=== PATIENT | male | born 1935 | race Caucasian/White ===

== ENCOUNTER 2016-04-24 13:48 | Outpatient (CLI) | payer MEDICARE | END 2016-04-24 13:49 | disposition home or self-care (01) | DX: R97.20 Elevated prostate specific antigen [PSA] (principal); Z85.46 Personal history of malignant neoplasm of prostate ==

== ENCOUNTER 2016-09-10 09:42 | Outpatient (CLI) | payer MEDICARE ==
[2016-09-10 18:38] LABS: BASOPHILS % (AUTO) 0.5 %; EOSINOPHILS % (AUTO) 2.7 %; HGB - HEMOGLOBIN 14.3 g/dL (14.0-18.0); LYMPHOCYTES % (AUTO) 48.9 %; MEAN CORPUSCULAR HEMOGLOBIN 34.3 pg (27.0-31.0); MEAN CORPUSCULAR HGB CONC 33.3 g/dL (32.0-36.0); MEAN PLATELET VOLUME 10.1 fL (7.4-11.4); MONOCYTES % (AUTO) 5.6 %; NEUTROPHILS % (AUTO) 42.3 %; RED BLOOD COUNT 4.17 10^6/uL (4.70-6.10); RED CELL DISTRIBUTION WIDTH 13.4 % (12.0-15.0); UNCORRECTED WHITE BLOOD COUNT 9.6 x10^3/uL; WHITE BLOOD COUNT 9.6 x10^3/uL (4.8-10.8)
[2016-09-10 18:50] LABS: BAND NEUTROPHILS % (MANUAL) 0 %
[2016-09-10 18:54] LABS: ALBUMIN/GLOBULIN RATIO 1.4 (1.0-2.2); BILIRUBIN,TOTAL 0.6 mg/dL (0.2-1.0); BUN - BLOOD UREA NITROGEN 16 mg/dL (6-20); CARBON DIOXIDE - CO2 25 mmol/L (21-32); CHLORIDE 106 mmol/L (101-111); CHOL/HDL RATIO 3.6 (<5.0); CHOLESTEROL 228 mg/dL; CREATININE 0.7 mg/dL (0.6-1.2); GFR - MDRD 109 (>89); GLUCOSE 80 mg/dL (70-100); HDL CHOLESTEROL 63 mg/dL; LDL/HDL RATIO 2.3 (<3.6); SODIUM 139 mmol/L (135-145); TOTAL PROTEIN 6.6 g/dL (6.7-8.2); TRIGLYCERIDES 90 mg/dL; VLDL CHOLESTEROL 18 mg/dL
[2016-09-10 19:23] LABS: EOSINOPHILS % (MANUAL) 1 %; LYMPHOCYTES % (MANUAL) 38 %; NEUTROPHILS % (MANUAL) 54 %; NP AUTO DIFFERENTIAL? YES; NP MAN DIFFERENTIAL? NO; PLATELET ESTIMATE, MANUAL NORMAL (130-450,000) (NORMAL); PLATELET MORPHOLOGY NORMAL APPEARANCE (NORMAL); TOTAL CELLS COUNTED 100; WBC MORPHOLOGY (MULTIPLE) 1+ SMUDGE CELLS (NORMAL)
== END 2016-09-10 09:43 | disposition home or self-care (01) ==
LOC: LAB.R 09:42
PROVIDERS: ATTEND Internal Medicine
DX: E78.2 Mixed hyperlipidemia (principal); Z79.899 Other long term (current) drug therapy
CPT/HCPCS: 80053; 80061; 84443; 85025

== ENCOUNTER 2016-10-07 09:20 | Outpatient (CLI) | payer MEDICARE ==
--- NOTE | 2016-10-07 11:56 | XRAY Report ---
MODIFIED BARIUM SWALLOW: 10/07/2016 CLINICAL INDICATION: Dysphagia. FINDINGS: Various consistencies of barium were prepared and administered in conjunction with Speech Pathology. There was no evidence of penetration or aspiration with any administered consistency. Pl ease also refer to full report from Speech Pathology for further findings. IMPRESSION: NO EVIDENCE OF PENETRATION OR ASPIRATION. FLUOROSCOPY TIME: 1 minute 2 seconds; 1 spot image obtained (cinefluoroscopy recorded). JOB #: [id number] EXT JOB #:[id number]
== END 2016-10-07 09:21 | disposition home or self-care (01) ==
LOC: DI 09:20
PROVIDERS: ATTEND Otolaryngology
DX: R13.19 Other dysphagia (principal)
CPT/HCPCS: 74230; 92611; G8996; G8997; G8998

== ENCOUNTER 2016-11-05 15:37 | Outpatient (CLI) | payer MEDICARE | END 2016-11-05 15:38 | disposition home or self-care (01) | LOC: LAB.R 15:37 | PROVIDERS: ATTEND Internal Medicine | DX: R97.20 Elevated prostate specific antigen [PSA] (principal); C61 Malignant neoplasm of prostate | CPT/HCPCS: 84153 ==

== ENCOUNTER 2017-06-01 13:42 | Inpatient (IN) | payer MEDICARE ==
[2017-06-01 14:13] LABS: BILIRUBIN,URINE NEGATIVE (NEGATIVE); GLUCOSE, URINE (UA) NEGATIVE (NEGATIVE); KETONES,URINE (UA) NEGATIVE (NEGATIVE); LEUKOCYTE ESTERASE, URINE NEGATIVE (NEGATIVE); NITRITE,URINE NEGATIVE (NEGATIVE); OCCULT BLOOD,URINE NEGATIVE (NEGATIVE); PROTEIN,URINE NEGATIVE (NEGATIVE); UROBILINOGEN,URINE 0.2 (NORMAL) E.U./dL (NORMAL)
[2017-06-01 14:15] LABS: CLARITY,URINE CLEAR (CLEAR)
--- NOTE | 2017-06-01 14:42 | ED Physician Documentation ---
PD HPI SYNCOPE - Stated complaint Stated Complaint: WEAKNESS - Chief complaint Chief Complaint: Neuro - History obtained from History obtained from: Patient, Family - History of Present Illness Witnessed: Witnessed (had general weakness and difficulty getting up from chair , legs did not hold him, and he slumped to the floor. Not syncope per se. [place] a bit weaker yesterday. Usually is independent with walking (gets around slowly in their RV, without significant exercise). No prior similar.) Timing - onset: How many days ago (couple days of developing weakness.) Duration: Other (he is still feeling too weak to stand on his own.) Preceding symptoms: Light headed, Generalized weakness. No: Chest pain, Abdominal pain, Nausea / vomiting Associated symptoms: No: Seizure, Incontinant of urine, Chest pain Contributing factors: Recent med change (Propranolol added for migraine prophylaxis a month ago.), Other (feeling ill and with cough for couple of days) . No: Decreased PO intake Injury occurred: No: Fell Recently seen: Clinic (a month ago and Rx Propranolol for migraine prophylaxis. No other new meds. Last Cyclosporine dose was April.) Review of Systems Constitutional: reports: Chills, Myalgias, Fatigue. denies: Fever Eyes: denies: Loss of vision, Decreased vision Nose: denies: Rhinorrhea / runny nose, Congestion Throat: reports: Sore throat Cardiac: denies: Chest pain / pressure, Palpitations, Pedal edema, Calf pain Respiratory: reports: Dyspnea, Cough. denies: Wheezing GI: denies: Nausea, Vomiting, Diarrhea : denies: Dysuria, Frequency Skin: denies: Rash, Lesions Neurologic: reports: Generalized weakness, Near syncope. 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 ) HEENT: Other Psych: None Musculoskeletal: Osteoarthritis, Chronic back pain Derm: Herpes zoster, Other - Past Surgical History General: Appendectomy, Hiatal hernia repair, Colonoscopy HEENT: Cataracts - Present Medications Home Medications: Ambulatory Orders Medication Instructions Recorded Confirmed Aspirin [Aspirin EC] 81 mg PO DAILY 01/06/17 04/14/17 Atorvastatin [Lipitor] 20 mg PO DAILY 01/06/17 04/14/17 Bisacodyl [Dulcolax] 5 mg PO DAILY 01/06/17 04/14/17 Cyclosporine [Restasis] 1 each OP PRN PRN 01/06/17 04/14/17 Folic Acid 0.8 mg PO DAILY 01/06/17 04/14/17 Multivit-Min/FA/Lycopen/Lutein 1 tab PO DAILY 01/06/17 04/14/17 [Centrum Silver Men Tablet] [place]-3/Dha/Epa/Fish Oil [Fish Oil 1 each PO DAILY 01/06/17 04/14/17 1,200 mg Softgel] Rizatriptan Benzoate [Rizatriptan] 5 mg PO DAILY 01/06/17 04/14/17 Propranolol HCl [Propranolol HCl 06/01/17 ER] - Allergies Allergies/Adverse Reactions: Allergies Allergy/AdvReac Type Severity Reaction Status Date / Time No Known Drug Allergies Allergy Verified 06/01/17 13:56 - Living Situation Living Situation: reports: With spouse/s.o. Living Arrangement: reports: At home ( or mobile home) - Family History Family history: reports: Non contributory. denies: Venous thromboembolism PD ED PE NORMAL - Vitals Vital signs reviewed: Yes - General General: Alert and oriented X 3, No acute distress, Well developed/nourished - HEENT HEENT: Ears normal, Moist mucous membranes, Pharynx benign - Neck Neck: Supple, no meningeal sign, No adenopathy - Cardiac Cardiac: RRR, No murmur - Respiratory Respiratory: No respiratory distress. No: Clear bilaterally (no wheezing but has coarse sounds more on the right. 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, No motor deficit, No sensory deficit, Normal speech Eye Opening: Spontaneous Motor: Obeys Commands Verbal: Oriented GCS Score: 15 - Psych Psych: Normal mood Results - Vitals Vitals: Vital Signs - 24 hr 06/01/17 13:52 Temperature 37.0 C Heart Rate 64 Respiratory 16 Rate Blood Pressure 104/81 H O2 Saturation 98 Oxygen O2 Source Room air - Labs Labs: Laboratory Tests 06/01/17 06/01/17 06/01/17 14:05 14:37 14:37 WBC 21.0 H RBC 4.23 L Hgb 14.3 Hct 42.6 MCV 100.9 H MCH 33.8 H MCHC 33.5 RDW 13.0 Plt Count 194 MPV 10.0 Neut # Not Reportable Lymph # Not Reportable [place] # Not Reportable Eos # Not Reportable Baso # Not Reportable Absolute Nucleated RBC Not Reportable Total Counted 100 Band Neuts % (Manual) 5 Reactive Lymphs % (Man) 1 Abnorm Lymph % (Manual) 0 Nucleated RBC % Not Reportable Neutrophils # (Manual) 17.2 H Lymphocytes # (Manual) 3.4 Monocytes # (Manual) 0.4 Eosinophils # (Manual) 0.0 Basophils # (Manual) 0.0 Differential Comment MANUAL DIFFERENTIAL Platelet Estimate NORMAL (130-450,000) Platelet Morphology NORMAL APPEARANCE RBC Morph Micro Appear NORMAL APPEARANCE Sodium 136 Potassium 3.8 Chloride 103 Carbon Dioxide 24 Anion Gap 9.0 BUN 15 Creatinine 0.7 Estimated GFR (MDRD) 109 Glucose 174 H Lactic Acid Calcium 9.3 Magnesium 2.0 Total Bilirubin 1.0 AST 25 ALT 22 Alkaline Phosphatase 56 Troponin I Total Protein 7.4 Albumin 4.1 Globulin 3.3 Albumin/Globulin Ratio 1.2 Lipase 23 Urine Color YELLOW Urine Clarity CLEAR Urine pH 6.0 Ur Specific [place] 1.025 Urine Protein NEGATIVE Urine Glucose (UA) NEGATIVE Urine Ketones NEGATIVE Urine Occult Blood NEGATIVE Urine Nitrite NEGATIVE Urine Bilirubin NEGATIVE Urine Urobilinogen 0.2 (NORMAL) Ur Leukocyte Esterase NEGATIVE Ur Microscopic Review NOT INDICATED Urine Culture Comments NOT INDICATED 06/01/17 06/01/17 14:37 16:05 WBC RBC Hgb Hct MCV MCH MCHC RDW Plt Count MPV Neut # Lymph # [place] # Eos # Baso # Absolute Nucleated RBC Total Counted Band Neuts % (Manual) Reactive Lymphs % (Man) Abnorm Lymph % (Manual) Nucleated RBC % Neutrophils # (Manual) Lymphocytes # (Manual) Monocytes # (Manual) Eosinophils # (Manual) Basophils # (Manual) Differential Comment Platelet Estimate Platelet Morphology RBC Morph Micro Appear Sodium Potassium Chloride Carbon Dioxide Anion Gap BUN Creatinine Estimated GFR (MDRD) Glucose Lactic Acid 2.1 Calcium Magnesium Total Bilirubin AST ALT Alkaline Phosphatase Troponin I < 0.04 Total Protein Albumin Globulin Albumin/Globulin Ratio Lipase Urine Color Urine Clarity Urine pH Ur Specific [place] Urine Protein Urine Glucose (UA) Urine Ketones Urine Occult Blood Urine Nitrite Urine Bilirubin Urine Urobilinogen Ur Leukocyte Esterase Ur Microscopic Review Urine Culture Comments - Rads (name of study) chest xray Radiology: Final report received, EMP read contemporaneously (right middle lobe infiltrate) PD MEDICAL DECISION MAKING - ED course Complexity details: reviewed results, considered differential (Nonfocal weakness with generalized symptoms and inability to stand without assistance. He has had a cough for several days. His oxygen level is good. His heart rate is normal to slightly bradycardic. He had been started on propranolol for migraines just a month ago. This is probably adding to his weakness affect but primarily looks to be acute pneumonia. He has a elevated white count and a chest x-ray with infiltrate. The general weakness and his age also warrant more aggressive treatment. He is given IV fluids and IV antibiotics. There is no wheezing noted per se. I did talk with the hospitalist who will admit the patient.), d/w patient Departure - Departure Disposition: 66 [facility] DC/Xfer Clinical Impression: Generalized weakness Pneumonia Qualifiers: Pneumonia type: due to unspecified organism Laterality: right Lung location: middle lobe of lung Qualified Code(s): J18.1 - Lobar pneumonia, unspecified organism Condition: Stable Record reviewed to determine appropriate education?: Yes
[2017-06-01] MEDS ORDERED: SODIUM CHLORIDE 0.9% 1,000 ML IV ONE (15:03)
[2017-06-01 15:12] LABS: BASOPHILS % (AUTO) 0.3 %; EOSINOPHILS % (AUTO) 0.1 %; HGB - HEMOGLOBIN 14.3 g/dL (14.0-18.0); LYMPHOCYTES % (AUTO) 16.4 %; MEAN CORPUSCULAR HEMOGLOBIN 33.8 pg (27.0-31.0); MEAN CORPUSCULAR HGB CONC 33.5 g/dL (32.0-36.0); MEAN CORPUSCULAR VOLUME 100.9 fL (80.0-94.0); MONOCYTES % (AUTO) 4.2 %; PLT - PLATELET COUNT 194 10^3/uL (130-450); RED BLOOD COUNT 4.23 10^6/uL (4.70-6.10)
[2017-06-01 15:13] LABS: ABNORMAL LYMPHS % (MANUAL) 0 %
[2017-06-01 15:19] LABS: ALBUMIN 4.1 g/dL (3.2-5.5); ALBUMIN/GLOBULIN RATIO 1.2 (1.0-2.2); CALCIUM 9.3 mg/dL (8.5-10.3); CREATININE 0.7 mg/dL (0.6-1.2); TOTAL PROTEIN 7.4 g/dL (6.7-8.2)
[2017-06-01 15:41] LABS: BAND NEUTROPHILS % (MANUAL) 5 %; DIFFERENTIAL COMMENT MANUAL DIFFERENTIAL; LYMPHOCYTES # (MANUAL) 3.4 10^3/uL (1.5-3.5); LYMPHOCYTES % (MANUAL) 15 %; MONOCYTES # (MANUAL) 0.4 10^3/uL (0.0-1.0); NEUTROPHILS # (MANUAL) 17.2 10^3/uL (1.5-6.6); NEUTROPHILS % (MANUAL) 77 %; PLATELET ESTIMATE, MANUAL NORMAL (130-450,000) (NORMAL); PLATELET MORPHOLOGY NORMAL APPEARANCE (NORMAL); RBC MORPHOLOGY (MULTIPLE) NORMAL APPEARANCE (NORMAL)
--- NOTE | 2017-06-01 15:43 | XRAY Preliminary Report ---
Exam: XR CHEST 2 VIEW X-RAY IMPRESSION: 1. Right upper mid lung new density, suspicious for acute pneumonia, not excluding old granulomatous disease or neoplasm. Follow-up recommended to ensure resolution or stability. [facility] SITE ID: [id number]
--- NOTE | 2017-06-01 15:43 | XRAY Report ---
EXAM: CHEST RADIOGRAPHY EXAM DATE: 06/01/2017 03:19 PM. CLINICAL HISTORY: Cough and weakness. COMPARISON: None. TECHNIQUE: 2 views. FINDINGS: Lungs/Pleura: There is an asymmetric ill-defined opacity within the right upper lobe. The left lung i s clear. Negative for pleural effusion and pneumothorax. Mediastinum: There are calcified right hilar lymph nodes. The heart size is normal. Other: None. IMPRESSION: 1. Right upper mid lung new density, suspicious for acute pneumonia, not excluding old granulomatous disease or neoplasm. Follow-up recommended to ensure resolution or stability. [facility] Referring Provider Line: [phone] SITE ID: [id number]
[2017-06-01] MEDS ORDERED: cefTRIAXone 1 GM in SODIUM CHLORIDE 0.9% MINIBAG 100 ML IV STA (15:55)
[2017-06-01] MEDS ORDERED: AZITHROMYCIN INJ 500 MG in SODIUM CHLORIDE 0.9% 250 ML IV STA (15:56)
[2017-06-01] MEDS ORDERED: IBUPROFEN 600 MG TABLET PO PRN (17:36)
[2017-06-01] MEDS ORDERED: SODIUM CHLORIDE FLUSH 0.9% 10 ML SYRINGE IVP PRN (17:36)
[2017-06-01] MEDS ORDERED: TEMAZEPAM 15 MG CAPSULE PO PRN (17:36)
[2017-06-01] MEDS ORDERED: ONDANSETRON 4 MG/2 ML VIAL IVP PRN (17:36)
--- NOTE | 2017-06-01 17:50 | HISTORY & PHYSICAL EXAMINATION ---
Chief Complaint - Chief Complaint Chief Complaint: "I fell this moringing getting dressed" History of Present Illness - Admitted From Admitted From:: ER - History Obtained From Records Reviewed: in [facility] History obtained from: patient and Exam Limitations: none - History of Present Illness HPI Comment/Other: Mr Adler is a pleasant 81yo M with history of prostate CA, under treatment with Lupron and doing well. He reports occasional migraines, under control with propranolol. Patient reports he was in his usual state of health until the Thursday when he got a sore throat. Today, he was getting dressed and felt weak, he slid to the floor and had no injury, he did not lose consciousness. He has cough, rarely productive of sputum, no fever or chills but states he is always cold. He has had mild congestion in the chest bt no wheezing. Of note his was admitted last month with pneumonia and responded well to antibx therapy. History - Past Medical History Cardiovascular: reports: High cholesterol Respiratory: reports: None Neuro: reports: Headache/migraine Endocrine/Autoimmune: reports: None GI: reports: Colon polyps : reports: Other (postate cancer, on Lupron, followed by Soo Gamboa) Psych: reports: None Musculoskeletal: reports: Osteoarthritis Derm: reports: Herpes zoster MRSA Hx?: No - Past Surgical History General: reports: Appendectomy, Hiatal hernia repair HEENT: reports: Cataracts (right) - Family & Social History Family History: Mother: ((dad)healthy, at age 100), Diabetes, Type 2, Father: , Brother: CAD (afib), Cancer (colon) Living arrangement: At home (RV, 4 steps to enter and 1 step inside) Living Situation: With spouse/s.o. - Substance History Use: Uses substance without health or social issues: Alcohol (1/3 bottle of wine a day) Abuse: Recurrent use of substance despite neg consequences: NONE Dependence: Experiences withdrawal or developed tolerances: NONE Tobacco Details: Chewing Tobacco (1/3 can of [place] a day) Meds/Allgy - Home Medications Home Medications: Ambulatory Orders Medication Instructions Recorded Confirmed Aspirin [Aspirin EC] 81 mg PO DAILY 01/06/17 06/01/17 Atorvastatin [Lipitor] 20 mg PO QPM 01/06/17 06/01/17 Folic Acid 800 mcg PO DAILY 01/06/17 06/01/17 [place]-3/Dha/Epa/Fish Oil [Fish Oil 1,200 mg PO DAILY 01/06/17 06/01/17 1,200 mg Softgel] Rizatriptan Benzoate [Rizatriptan] 5 mg PO PRN PRN 01/06/17 06/01/17 Multivitamin [Theragran] 1 tab PO DAILY 06/01/17 06/01/17 Propranolol HCl [Propranolol HCl 80 mg PO DAILY 06/01/17 06/01/17 ER] - Allergies Allergies/Adverse Reactions: Allergies Allergy/AdvReac Type Severity Reaction Status Date / Time No Known Drug Allergies Allergy Verified 06/01/17 13:56 Review of Systems - Constitutional Constitutional: reports: Fatigue, Weakness. denies: Fever, Diaphoresis, Night sweats - Eyes Eyes: denies: Pain, Vision loss - Ears, Nose & Throat Ears, Nose & Throat: reports: Sore throat. denies: Ear pain, Vertigo - Cardiovascular Cariovascular: denies: Irregular heart rate, Chest pain, Syncope, Exertional dyspnea - Respiratory Respiratory: reports: Cough, Sputum production (scant). denies: Hemoptysis, Orthopnea, SOB at rest - Gastrointestinal Gastrointestinal: denies: Abdominal pain, Constipation, Diarrhea, Nausea, Vomiting - Genitourinary Genitourinary: denies: Dysuria, Flank pain - Musculoskeletal Musculoskeletal: reports: Back pain (somewhat chronic). denies: Muscle pain - Integumentary Integumentary: denies: Rash - Neurological Neurological: reports: Memory problems ( says forgetful). denies: Headache - Psychiatric Psychiatric: denies: Depression, Anxiety - Hematologic/Lymphatic Hematologic/Lymphatic: denies: Anemia, Blood clots, Recurrent infections - All Other Systems All Other Systems: reports: Reviewed and negative Exam - Vital Signs Vital Signs: Vital Signs x48h Temp Pulse Resp BP Pulse Ox 06/01/17 17:27 150/89 H 06/01/17 17:16 72 20 162/144 H 98 06/01/17 13:52 37.0 C 64 16 104/81 H 98 - Physical Exam General Appearance: positive: No acute distress, Alert Eyes Bilateral: positive: Normal inspection, PERRL, EOMI, Conjunctivae nml ENT: positive: Dry mucous membranes Neck: positive: No JVD Respiratory: positive: Chest non-tender, No respiratory distress. negative: Breath sounds nml (decresed in the right side) Cardiovascular: positive: Regular rate & rhythm, No murmur Peripheral Pulses: positive: 2+ Abdomen: positive: Non-tender, Nml bowel sounds, No distention Back: positive: Nml inspection Skin: positive: Color nml, Warm, Dry. negative: Skin rash Extremities: positive: Non-tender, Full ROM, Nml appearance. negative: Pedal edema, Calf tenderness, Joint swelling Neurologic/Psychiatric: positive: Oriented x3, Motor nml, Sensation nml, Mood/ affect nml Conclusion/Plan - Problem List (1) Pneumonia Conclusion/Plan: Presented for sudden onset generalized weakness, GLF, unable to stand and walk. This is following 1d sore throat and cough with mild chest congestion. WBC 21k, neutrophil predominant. No fever. CXR confirm RUL opacity. recently with CAP. -Check flu swab -CTX + azithromycin -Duonebs q6 -Supplemental O2 as needed to keep sat >90% -Supportive care: tylenol and antitussives Qualifiers: Pneumonia type: due to unspecified organism Laterality: right Lung location: middle lobe of lung Qualified Code(s): J18.1 - Lobar pneumonia, unspecified organism (2) Generalized weakness Conclusion/Plan: Likely from pneumonia, usually walks independently (with a cane sometimes). GLF today x1, no injury. -PT consult (3) Prostate cancer Conclusion/Plan: PHx of, stable on Lupron. Olsen scan 10/2016 negative for metastasis. -Follow-up with Dr Gamboa as previously planned (4) Migraine Conclusion/Plan: Hx of migraine, none recently. -Continue propranolol -Uses triptan prn at home DISCHARGE PLAN: I suspect he will return home in 2-3d - Lab Results Lab results reviewed: Yes Fish Bones: 06/01/17 14:37 06/01/17 14:37 - Diagnostic Imaging Results Diagnostic Imaging Results: positive: Final report reviewed (CXR wiht RUL opacity) - EKG Results EKG Interpreted Independently: Yes EKG Findings: reviewed. Core Measures - Anticipated LOS I expect patient to be DC'd or transferred within 96 hours.: Yes - DVT/VTE - Prophylaxis VTE/DVT Device ordered at admit?: Yes VTE/DVT Prophylaxis med ordered at admit?: Yes
[2017-06-01] MEDS ORDERED: BENZONATATE 100 MG CAPSULE PO PRN (19:15)
[2017-06-01] MEDS ORDERED: guaiFENesin/DEXTROMETHORPHAN 10 ML UDC PO PRN (19:15)
[2017-06-01] MEDS: IPRATROPIUM/ALBUTEROL 3 ML NEB INH SCH (19:23)
[2017-06-01] MEDS: ATORVASTATIN 10 MG TABLET PO SCH (20:45)
[2017-06-02] MEDS: SODIUM CHLORIDE FLUSH 0.9% 10 ML SYRINGE IVP SCH ×3 (00:44→17:24)
[2017-06-02] MEDS: ACETAMINOPHEN 325 MG TABLET PO PRN (00:50)
[2017-06-02 04:56] LABS: BASOPHILS # (AUTO) 0.1 10^3/uL (0.0-0.1); BASOPHILS % (AUTO) 0.5 %; EOSINOPHILS # (AUTO) 0.1 10^3/uL (0.0-0.7); EOSINOPHILS % (AUTO) 0.3 %; HGB - HEMOGLOBIN 11.9 g/dL (14.0-18.0); LYMPHOCYTES # (AUTO) 4.9 10^3/uL (1.5-3.5); LYMPHOCYTES % (AUTO) 24.6 %; MEAN CORPUSCULAR HEMOGLOBIN 33.1 pg (27.0-31.0); MEAN CORPUSCULAR HGB CONC 33.3 g/dL (32.0-36.0); MEAN CORPUSCULAR VOLUME 99.3 fL (80.0-94.0); MEAN PLATELET VOLUME 9.8 fL (7.4-11.4); MONOCYTES # (AUTO) 1.5 10^3/uL (0.0-1.0); MONOCYTES % (AUTO) 7.7 %; NEUTROPHILS # (AUTO) 13.2 10^3/uL (1.5-6.6); NEUTROPHILS % (AUTO) 66.9 %; PLT - PLATELET COUNT 171 10^3/uL (130-450); RED BLOOD COUNT 3.58 10^6/uL (4.70-6.10); RED CELL DISTRIBUTION WIDTH 12.7 % (12.0-15.0); WHITE BLOOD COUNT 19.8 x10^3/uL (4.8-10.8)
[2017-06-02] MEDS: IPRATROPIUM/ALBUTEROL 3 ML NEB INH SCH ×3 (09:00→20:17)
[2017-06-02] MEDS: AZITHROMYCIN 250 MG TABLET PO SCH (09:23)
[2017-06-02] MEDS: PROPRANOLOL ER 80 MG CAPSULE PO SCH (09:23)
[2017-06-02] MEDS: MULTIVITAMIN TABLET PO SCH (09:23)
[2017-06-02] MEDS: SACCHAROMYCES BOULARDII 250 MG CAPSULE PO SCH ×2 (09:23→17:24)
[2017-06-02] MEDS: FOLIC ACID 1 MG TABLET PO SCH (09:23)
[2017-06-02] MEDS: OMEGA-3 ACID ETHYL ESTERS 1 GM CAPSULE PO SCH (09:23)
[2017-06-02] MEDS: ASPIRIN EC 81 MG TABLET PO SCH (09:23)
[2017-06-02] MEDS: POLYETHYLENE GLYCOL 3350 17 GM PACKET PO SCH (09:25)
[2017-06-02] MEDS: ENOXAPARIN 40 MG/0.4 ML SYRINGE SUBQ SCH (09:26)
[2017-06-02] MEDS: cefTRIAXone 2 GM in SODIUM CHLORIDE 0.9% MINIBAG 100 ML IV SCH (09:33)
--- NOTE | 2017-06-02 17:22 | PROVIDER PROGRESS NOTE ---
Subjective - Prog Note Date Prog Note Date: 06/02/17 - Subjective Pt reports feeling: Improved Subjective: pt state he feels breathing better. denies CP, fever, chill, cough Current Medications - Current Medications Current Medications: Active Medications Acetaminophen (Tylenol) 650 mg PO Q4HR PRN PRN Reason: Pain 1 to 4 Last Admin: 06/02/17 00:50 Dose: 650 mg Albuterol/Ipratropium (Duoneb) 3 ml INH RTQID [facility] Stop: 06/02/17 18:59 Last Admin: 06/02/17 14:11 Dose: 3 ml Aspirin (Ecotrin) 81 mg PO DAILY [facility] Last Admin: 06/02/17 09:23 Dose: 81 mg Atorvastatin Calcium (Lipitor) 20 mg PO QPM [facility] Last Admin: 06/01/17 20:45 Dose: 20 mg Azithromycin (Zithromax) 500 mg PO DAILY [facility] Last Admin: 06/02/17 09:23 Dose: 500 mg Benzonatate (Tessalon) 100 mg PO TID PRN PRN Reason: Cough Enoxaparin Sodium (Lovenox) 40 mg SUBQ DAILY [facility] Last Admin: 06/02/17 09:26 Dose: 40 mg Folic Acid () 1 mg PO DAILY [facility] Last Admin: 06/02/17 09:23 Dose: 1 mg Guaifenesin (Robitussin Dm) 10 ml PO Q6HR PRN PRN Reason: Cough Ceftriaxone Sodium 2 gm/ (Sodium Chloride) 100 mls @ 200 mls/hr IV DAILY [facility] Last Infusion: 06/02/17 10:03 Dose: Infused Ibuprofen (Motrin) 600 mg PO Q6HR PRN PRN Reason: Pain 1 to 4 Multivitamins (Theragran) 1 tab PO DAILY [facility] Last Admin: 06/02/17 09:23 Dose: 1 tab Yvhal-0-Cvfb Ethyl Esters (Lovaza) 1 gm PO DAILY [facility] Last Admin: 06/02/17 09:23 Dose: 1 gm Ondansetron HCl (Zofran Inj) 4 mg IVP Q6HR PRN PRN Reason: Nausea / Vomiting Polyethylene Glycol (Miralax) 17 gm PO DAILY [facility] Last Admin: 06/02/17 09:25 Dose: 17 gm Propranolol HCl (Inderal La) 80 mg PO DAILY [facility] Last Admin: 03/27/18 09:23 Dose: 80 mg Saccharomyces Boulardii (Florastor) 250 mg PO BIDWM [facility] Last Admin: 06/02/17 09:23 Dose: 250 mg Sodium Chloride (Normal Saline Flush 0.9%) 10 ml IVP PRN PRN PRN Reason: NEEDED PER PROVIDER ORDERS Sodium Chloride (Normal Saline Flush 0.9%) 10 ml IVP 0100,0900,1700 [facility] Last Admin: 06/02/17 09:26 Dose: 10 ml Temazepam (Restoril) 15 mg PO QPM PRN PRN Reason: Insomnia Aspirin [Aspirin EC] 81 mg PO DAILY 01/06/17 Atorvastatin [Lipitor] 20 mg PO QPM 01/06/17 Folic Acid 800 mcg PO DAILY 01/06/17 [place]-3/Dha/Epa/Fish Oil [Fish Oil 1,200 mg Softgel] 1,200 mg PO DAILY 01/06/17 Rizatriptan Benzoate [Rizatriptan] 5 mg PO PRN PRN 01/06/17 Multivitamin [Theragran] 1 tab PO DAILY 06/01/17 Propranolol HCl [Propranolol HCl ER] 80 mg PO DAILY 06/01/17 Objective - Vital Signs/Intake & Output Vital Signs: Vital Signs x48h Temp Pulse Pulse Pulse Pulse Resp BP 06/02/17 16:00 37.3 C 58 L 20 06/02/17 14:12 65 18 06/02/17 13:45 55 L 46 L 152/79 H BP BP Pulse Ox 06/02/17 16:00 154/79 H 98 06/02/17 14:12 06/02/17 13:45 132/60 H Intake & Output: Intake & Output 05/30/17 05/31/17 06/01/17 06/02/17 23:59 23:59 23:59 23:59 Intake Total 2250 Output Total 300 Balance 1950 - Objective General Appearance: positive: No acute distress, Alert. negative: Lethargic Eyes Bilateral: positive: Normal inspection, PERRL, No lid inflammation, Conjunctivae nml ENT: positive: ENT inspection nml, Pharynx nml, No signs of dehydration. negative: Purulent nasal drainage, Pharyngeal erythema, Oral lesions, Dry mucous membranes Neck: positive: Nml inspection, Thyroid nml, No JVD. negative: Trachea midline , Thyromegaly, Lymphadenopathy (R), Lymphadenopathy (L), Stiff neck, Carotid bruit, Swelling/bruising, Tracheal deviation Respiratory: positive: Chest non-tender, No respiratory distress, Breath sounds nml. negative: Wheezes, Rales, Rhonchi Cardiovascular: positive: Regular rate & rhythm, No murmur, No gallop. negative : Irregularly irregular, Extrasystoles, Tachycardia, Bradycardia, Systolic murmur, Diastolic murmur Peripheral Pulses: 2+ Radial (R), 2+ Radial (L), 2+ Dorsalis pedis (R), 2+ Dorsalis pedis (L) Abdomen: positive: Non-tender, No organomegaly, Nml bowel sounds, No distention. negative: Tenderness, Guarding, Rebound Back: positive: Nml inspection. negative: CVA tenderness (R), CVA tenderness (L ) Skin: positive: Color nml, No rash, Warm, Dry. negative: Cyanosis, Diaphoresis , Pallor Extremities: positive: Non-tender, Nml appearance. negative: Calf tenderness, Joint swelling, Lenka's sign/cords Neurologic/Psychiatric: positive: Sensation nml, Disoriented to place, Disoriented to time. negative: Disoriented to person, Weakness, Sensory loss, Facial droop, Slurred/abnml speech - Lab Results Fish Bones: 06/02/17 04:43 06/01/17 14:37 Other Labs: Lab Results x24hrs 06/02/17 06/01/17 Range/Units 04:43 21:00 WBC 19.8 H (4.8-10.8) x10^3/uL RBC 3.58 L (4.70-6.10) 10^6/uL Hgb 11.9 L (14.0-18.0) g/dL Hct 35.6 L (42.0-52.0) % MCV 99.3 H (80.0-94.0) fL MCH 33.1 H (27.0-31.0) pg MCHC 33.3 (32.0-36.0) g/dL RDW 12.7 (12.0-15.0) % Plt Count 171 (130-450) 10^3/uL MPV 9.8 (7.4-11.4) fL Neut # 13.2 H (1.5-6.6) 10^3/uL Lymph # 4.9 H (1.5-3.5) 10^3/uL [place] # 1.5 H (0.0-1.0) 10^3/uL Eos # 0.1 (0.0-0.7) 10^3/uL Baso # 0.1 (0.0-0.1) 10^3/uL Absolute Nucleated RBC 0.00 x10^3/uL Nucleated RBC % 0.0 /100WBC Influenza A (Rapid) Negative (Negative) Influenza B (Rapid) Negative (Negative) Influenza Types A,B Ag - Assessment/Plan - Problem List (1) Pneumonia Impression: (1) Pneumonia Conclusion/Plan: Negative for influZ A/B continue Rocephin + azithromycin -Duonebs q6 PRN -Supplemental O2 as needed to keep sat >90% Presented for sudden onset generalized weakness, GLF, unable to stand and walk. This is following 1d sore throat and cough with mild chest congestion. WBC 21k, neutrophil predominant. No fever. CXR confirm RUL opacity. recently with CAP. -Check flu swab -CTX + azithromycin -Duonebs q6 -Supplemental O2 as needed to keep sat >90% -Supportive care: tylenol and antitussives (2) Generalized weakness Conclusion/Plan: continue PT, follow up recommendation Likely from pneumonia, usually walks independently (with a cane sometimes). GLF today x1, no injury. -PT consult (3) Prostate cancer Conclusion/Plan: stable, follow up pt's oncologist after D/C PHx of, stable on Lupron. Olsen scan 10/2016 negative for metastasis. -Follow-up with Dr Gamboa as previously planned (4) Migraine Conclusion/Plan: stable, continue home meds Hx of migraine, none recently. -Continue propranolol -Uses triptan prn at home Qualifiers: Pneumonia type: due to unspecified organism Laterality: right Lung location: middle lobe of lung Qualified Code(s): J18.1 - Lobar pneumonia, unspecified organism
[2017-06-02] MEDS: ATORVASTATIN 10 MG TABLET PO SCH (20:38)
[2017-06-03] MEDS: SODIUM CHLORIDE FLUSH 0.9% 10 ML SYRINGE IVP SCH ×3 (02:18→17:33)
[2017-06-03 04:54] LABS: BASOPHILS # (AUTO) 0.1 10^3/uL (0.0-0.1); BASOPHILS % (AUTO) 0.3 %; EOSINOPHILS # (AUTO) 0.1 10^3/uL (0.0-0.7); EOSINOPHILS % (AUTO) 0.8 %; HGB - HEMOGLOBIN 12.2 g/dL (14.0-18.0); LYMPHOCYTES % (AUTO) 25.1 %; MEAN CORPUSCULAR HEMOGLOBIN 33.4 pg (27.0-31.0); MEAN CORPUSCULAR HGB CONC 33.3 g/dL (32.0-36.0); MEAN CORPUSCULAR VOLUME 100.4 fL (80.0-94.0); MEAN PLATELET VOLUME 9.8 fL (7.4-11.4); MONOCYTES # (AUTO) 1.5 10^3/uL (0.0-1.0); MONOCYTES % (AUTO) 9.4 %; NEUTROPHILS # (AUTO) 10.3 10^3/uL (1.5-6.6); NEUTROPHILS % (AUTO) 64.4 %; PLT - PLATELET COUNT 170 10^3/uL (130-450); RED BLOOD COUNT 3.65 10^6/uL (4.70-6.10); RED CELL DISTRIBUTION WIDTH 12.7 % (12.0-15.0)
[2017-06-03 05:06] LABS: ALBUMIN 3.4 g/dL (3.2-5.5); ALBUMIN/GLOBULIN RATIO 1.1 (1.0-2.2); BILIRUBIN,TOTAL 0.8 mg/dL (0.2-1.0); CALCIUM 8.7 mg/dL (8.5-10.3); CREATININE 0.5 mg/dL (0.6-1.2); TOTAL PROTEIN 6.4 g/dL (6.7-8.2)
[2017-06-03] MEDS ORDERED: POTASSIUM CHLORIDE 20 MEQ TABLET PO ONE (08:19)
[2017-06-03] MEDS: SACCHAROMYCES BOULARDII 250 MG CAPSULE PO SCH ×2 (08:46→16:26)
[2017-06-03] MEDS: PROPRANOLOL ER 80 MG CAPSULE PO SCH (08:47)
[2017-06-03] MEDS: OMEGA-3 ACID ETHYL ESTERS 1 GM CAPSULE PO SCH (08:47)
[2017-06-03] MEDS: AZITHROMYCIN 250 MG TABLET PO SCH (08:47)
[2017-06-03] MEDS: MULTIVITAMIN TABLET PO SCH (08:47)
[2017-06-03] MEDS: ASPIRIN EC 81 MG TABLET PO SCH (08:47)
[2017-06-03] MEDS: FOLIC ACID 1 MG TABLET PO SCH (08:47)
[2017-06-03] MEDS: cefTRIAXone 2 GM in SODIUM CHLORIDE 0.9% MINIBAG 100 ML IV SCH (08:48)
[2017-06-03] MEDS: ENOXAPARIN 40 MG/0.4 ML SYRINGE SUBQ SCH (08:52)
[2017-06-03] MEDS: POLYETHYLENE GLYCOL 3350 17 GM PACKET PO SCH (09:36)
[2017-06-03] MEDS: ACETAMINOPHEN 325 MG TABLET PO PRN (12:28)
--- NOTE | 2017-06-03 12:48 | PROVIDER PROGRESS NOTE ---
Subjective - Prog Note Date Prog Note Date: 06/03/17 - Subjective Pt reports feeling: Improved Subjective: pt report he feel better and gains some strength as well. Denies fever, chill, CP, SOB Current Medications - Current Medications Current Medications: Active Medications Acetaminophen (Tylenol) 650 mg PO Q4HR PRN PRN Reason: Pain 1 to 4 Last Admin: 06/03/17 12:28 Dose: 650 mg Aspirin (Ecotrin) 81 mg PO DAILY [facility] Last Admin: 06/03/17 08:47 Dose: 81 mg Atorvastatin Calcium (Lipitor) 20 mg PO QPM [facility] Last Admin: 06/02/17 20:38 Dose: 20 mg Azithromycin (Zithromax) 500 mg PO DAILY [facility] Last Admin: 06/03/17 08:47 Dose: 500 mg Benzonatate (Tessalon) 100 mg PO TID PRN PRN Reason: Cough Enoxaparin Sodium (Lovenox) 40 mg SUBQ DAILY [facility] Last Admin: 06/03/17 08:52 Dose: 40 mg Folic Acid () 1 mg PO DAILY [facility] Last Admin: 06/03/17 08:47 Dose: 1 mg Guaifenesin (Robitussin Dm) 10 ml PO Q6HR PRN PRN Reason: Cough Ceftriaxone Sodium 2 gm/ (Sodium Chloride) 100 mls @ 200 mls/hr IV DAILY [facility] Last Infusion: 06/03/17 09:18 Dose: Infused Ibuprofen (Motrin) 600 mg PO Q6HR PRN PRN Reason: Pain 1 to 4 Multivitamins (Theragran) 1 tab PO DAILY [facility] Last Admin: 06/03/17 08:47 Dose: 1 tab [id number] Ethyl Esters (Lovaza) 1 gm PO DAILY [facility] Last Admin: 06/03/17 08:47 Dose: 1 gm Ondansetron HCl (Zofran Inj) 4 mg IVP Q6HR PRN PRN Reason: Nausea / Vomiting Polyethylene Glycol (Miralax) 17 gm PO DAILY [facility] Last Admin: 06/03/17 09:36 Dose: 17 gm Propranolol HCl (Inderal La) 80 mg PO DAILY [facility] Last Admin: 06/03/17 08:47 Dose: 80 mg Saccharomyces Boulardii (Florastor) 250 mg PO BIDWM [facility] Last Admin: 06/03/17 08:46 Dose: 250 mg Sodium Chloride (Normal Saline Flush 0.9%) 10 ml IVP PRN PRN PRN Reason: NEEDED PER PROVIDER ORDERS Sodium Chloride (Normal Saline Flush 0.9%) 10 ml IVP 0100,0900,1700 MICHAEL Last Admin: 06/03/17 02:18 Dose: 10 ml Temazepam (Restoril) 15 mg PO QPM PRN PRN Reason: Insomnia Aspirin [Aspirin EC] 81 mg PO DAILY 01/06/17 Atorvastatin [Lipitor] 20 mg PO QPM 01/06/17 Folic Acid 800 mcg PO DAILY 01/06/17 [place]-3/Dha/Epa/Fish Oil [Fish Oil 1,200 mg Softgel] 1,200 mg PO DAILY 01/06/17 Rizatriptan Benzoate [Rizatriptan] 5 mg PO PRN PRN 01/06/17 Multivitamin [Theragran] 1 tab PO DAILY 06/01/17 Propranolol HCl [Propranolol HCl ER] 80 mg PO DAILY 06/01/17 Objective - Vital Signs/Intake & Output Reviewed Vital Signs: Yes Vital Signs: Vital Signs x48h Temp Pulse Resp BP Pulse Ox 06/03/17 08:21 36.7 C 58 L 20 146/123 H 96 Intake & Output: Intake & Output 05/31/17 06/01/17 06/02/17 06/03/17 23:59 23:59 23:59 23:59 Intake Total 2850 525 Output Total 301 Balance 2549 525 - Objective General Appearance: positive: No acute distress, Alert. negative: Lethargic Eyes Bilateral: positive: Normal inspection, PERRL, No lid inflammation, Conjunctivae nml ENT: positive: ENT inspection nml, Pharynx nml, No signs of dehydration. negative: Purulent nasal drainage, Pharyngeal erythema, Oral lesions, Dry mucous membranes Neck: positive: Nml inspection, Thyroid nml, No JVD, Trachea midline. negative : Thyromegaly, Lymphadenopathy (R), Lymphadenopathy (L), Stiff neck, Carotid bruit, Swelling/bruising, Tracheal deviation Respiratory: positive: Chest non-tender, No respiratory distress, Breath sounds nml. negative: Wheezes, Rales, Rhonchi Cardiovascular: positive: Regular rate & rhythm, No murmur, No gallop. negative : Irregularly irregular, Extrasystoles, Tachycardia, Bradycardia, JVD present, Systolic murmur, Diastolic murmur Peripheral Pulses: 2+ Radial (R), 2+ Radial (L), 2+ Dorsalis pedis (R), 2+ Dorsalis pedis (L) Abdomen: positive: Non-tender, No organomegaly, Nml bowel sounds, No distention. negative: Tenderness, Guarding, Rebound Back: positive: Nml inspection. negative: CVA tenderness (R), CVA tenderness (L ) Skin: positive: Color nml, No rash, Warm, Dry. negative: Cyanosis, Diaphoresis , Pallor Extremities: positive: Non-tender, Full ROM, Nml appearance. negative: Calf tenderness, Joint swelling, Lenka's sign/cords Neurologic/Psychiatric: positive: Sensation nml, Mood/affect nml, Disoriented to time. negative: Disoriented to person, Disoriented to place, Weakness, Sensory loss, Facial droop, Slurred/abnml speech, Depressed mood/affect - Lab Results Fish Bones: 06/03/17 04:30 06/03/17 04:30 Other Labs: Lab Results x24hrs 06/03/17 06/03/17 Range/Units 04:30 04:30 WBC 16.0 H (4.8-10.8) x10^3/uL RBC 3.65 L (4.70-6.10) 10^6/uL Hgb 12.2 L (14.0-18.0) g/dL Hct 36.6 L (42.0-52.0) % MCV 100.4 H (80.0-94.0) fL MCH 33.4 H (27.0-31.0) pg MCHC 33.3 (32.0-36.0) g/dL RDW 12.7 (12.0-15.0) % Plt Count 170 (130-450) 10^3/uL MPV 9.8 (7.4-11.4) fL Neut # 10.3 H (1.5-6.6) 10^3/uL Lymph # 4.0 H (1.5-3.5) 10^3/uL Wilkes # 1.5 H (0.0-1.0) 10^3/uL Eos # 0.1 (0.0-0.7) 10^3/uL Baso # 0.1 (0.0-0.1) 10^3/uL Absolute Nucleated RBC 0.00 x10^3/uL Nucleated RBC % 0.0 /100WBC Sodium 137 (135-145) mmol/L Potassium 3.4 L (3.5-5.0) mmol/L Chloride 104 (101-111) mmol/L Carbon Dioxide 25 (21-32) mmol/L Anion Gap 8.0 (6-13) BUN 8 (6-20) mg/dL Creatinine 0.5 L (0.6-1.2) mg/dL Estimated GFR (MDRD) 160 (>89) Glucose 120 H (70-100) mg/dL Calcium 8.7 (8.5-10.3) mg/dL Total Bilirubin 0.8 (0.2-1.0) mg/dL AST 19 (10-42) IU/L ALT 20 (10-60) IU/L Alkaline Phosphatase 55 (42-121) IU/L Total Protein 6.4 L (6.7-8.2) g/dL Albumin 3.4 (3.2-5.5) g/dL Globulin 3.0 (2.1-4.2) g/dL Albumin/Globulin Ratio 1.1 (1.0-2.2) Assessment/Plan - Problem List (1) Pneumonia Impression: (1) Pneumonia Conclusion/Plan: pt feels better and state he gain some strength. Sats of O2 at room air is 96%, WBC is keeping down continue antibiotics -Duonebs q6 PRN Negative for influZ A/B continue Rocephin + azithromycin -Duonebs q6 PRN -Supplemental O2 as needed to keep sat >90% Presented for sudden onset generalized weakness, GLF, unable to stand and walk. This is following 1d sore throat and cough with mild chest congestion. WBC 21k, neutrophil predominant. No fever. CXR confirm RUL opacity. recently with CAP. -Check flu swab -CTX + azithromycin -Duonebs q6 -Supplemental O2 as needed to keep sat >90% -Supportive care: tylenol and antitussives (2) Generalized weakness Conclusion/Plan: pt state he gain some strength after treatment continue PT, follow up recommendation Likely from pneumonia, usually walks independently (with a cane sometimes). GLF today x1, no injury. -PT consult (3) Prostate cancer Conclusion/Plan: stable, follow up pt's oncologist after D/C PHx of, stable on Lupron. Olsen scan 10/2016 negative for metastasis. -Follow-up with Dr Gamboa as previously planned (4) Migraine Conclusion/Plan: stable, continue home meds Hx of migraine, none recently. -Continue propranolol -Uses triptan prn at home (5) Lymphocytosis it most likely caused by infection, pneumonia. Today WBC 16, down from 21 continue lab monitor continue antibiotics Qualifiers: Pneumonia type: due to unspecified organism Laterality: right Lung location: middle lobe of lung Qualified Code(s): J18.1 - Lobar pneumonia, unspecified organism
[2017-06-03] MEDS: ATORVASTATIN 10 MG TABLET PO SCH (20:45)
[2017-06-04] MEDS: SODIUM CHLORIDE FLUSH 0.9% 10 ML SYRINGE IVP SCH ×2 (01:33→09:38)
[2017-06-04 04:42] LABS: BASOPHILS # (AUTO) 0.1 10^3/uL (0.0-0.1); BASOPHILS % (AUTO) 0.4 %; EOSINOPHILS # (AUTO) 0.2 10^3/uL (0.0-0.7); EOSINOPHILS % (AUTO) 1.2 %; HGB - HEMOGLOBIN 11.9 g/dL (14.0-18.0); LYMPHOCYTES # (AUTO) 4.7 10^3/uL (1.5-3.5); LYMPHOCYTES % (AUTO) 35.1 %; MEAN CORPUSCULAR HEMOGLOBIN 33.1 pg (27.0-31.0); MEAN CORPUSCULAR HGB CONC 33.1 g/dL (32.0-36.0); MEAN PLATELET VOLUME 9.6 fL (7.4-11.4); MONOCYTES # (AUTO) 1.4 10^3/uL (0.0-1.0); MONOCYTES % (AUTO) 10.3 %; NEUTROPHILS # (AUTO) 7.2 10^3/uL (1.5-6.6); PLT - PLATELET COUNT 175 10^3/uL (130-450); RED CELL DISTRIBUTION WIDTH 12.5 % (12.0-15.0); WHITE BLOOD COUNT 13.5 x10^3/uL (4.8-10.8)
[2017-06-04 04:51] LABS: ALBUMIN 3.4 g/dL (3.2-5.5); ALBUMIN/GLOBULIN RATIO 1.1 (1.0-2.2); BILIRUBIN,TOTAL 0.9 mg/dL (0.2-1.0); CALCIUM 8.9 mg/dL (8.5-10.3); CREATININE 0.4 mg/dL (0.6-1.2); TOTAL PROTEIN 6.5 g/dL (6.7-8.2)
[2017-06-04] MEDS ORDERED: cloNIDine 0.1 MG TABLET PO PRN (08:27)
[2017-06-04] MEDS: OMEGA-3 ACID ETHYL ESTERS 1 GM CAPSULE PO SCH (08:33)
[2017-06-04] MEDS: SACCHAROMYCES BOULARDII 250 MG CAPSULE PO SCH (08:33)
[2017-06-04] MEDS: MULTIVITAMIN TABLET PO SCH (08:33)
[2017-06-04] MEDS: AZITHROMYCIN 250 MG TABLET PO SCH (08:33)
[2017-06-04] MEDS: PROPRANOLOL ER 80 MG CAPSULE PO SCH (08:33)
[2017-06-04] MEDS: ASPIRIN EC 81 MG TABLET PO SCH (08:33)
[2017-06-04] MEDS: FOLIC ACID 1 MG TABLET PO SCH (08:33)
[2017-06-04] MEDS: cefTRIAXone 2 GM in SODIUM CHLORIDE 0.9% MINIBAG 100 ML IV SCH (08:34)
[2017-06-04] MEDS: ENOXAPARIN 40 MG/0.4 ML SYRINGE SUBQ SCH (08:34)
[2017-06-04] MEDS ORDERED: RIZATRIPTAN BENZOATE 5 MG PO PRN (09:00)
[2017-06-04] MEDS: POLYETHYLENE GLYCOL 3350 17 GM PACKET PO SCH (09:38)
[2017-06-04] MEDS ORDERED: AMOX/CLAV 500 MG/125 MG TABLET PO SCH (10:00)
[2017-06-04] MEDS: ACETAMINOPHEN 325 MG TABLET PO PRN (11:42)
--- NOTE | 2017-06-04 12:02 | Discharge Plan ---
"Discharge Plan for SNF / INES - DC Plan and Transition Orders Disposition: 03 SNF DC/Xfer Condition: Stable SNF Transition Orders: Admit to: [[facility]] under the care of [Doctor Muniz] Discharge Diagnosis: [Pneumonia, weakness, Prostate Cancer, Migraine] Medicare Certification: I certify that [facility] is medically necessary on a continuing basis for any of the conditions for which she/he is receiving care during hospitalization. Notify PCP of admission and forward orders to primary provider for signature. Weight on admission and [56.5 kg]. Call PCP immediately if weight increases by [4] pounds or if patient develops dyspnea, chest pain/tightness or edema. House Bowel Program: [Yes] If no BM after 2 days, nurse may give M.O.M. 30ml PO PRN and /or ducolax Supp 1 TX and /or ARTIE 250mg P.O., and/or senna 1-2 tabs PO. On day 3 nurse may give repeat above order until residents constipation is resolved. Immunizations: Annual Influenza Vaccine: [Yes]. (between Nov 07 and June 06.) Unless allergy or already given Two-Step PPD: [Yes] per [facility] [phone] or appropriate documentation of approved exceptions Treatments & Other Orders: [May see Dr. Muniz after arrival to [facility]] Oxygen Orders: [as needed] Lab Tests or X-Rays Orders: [] Orthopedic Orders: [PT/OT evaluation and treatment]. Medications: PLEASE REFER TO THE DISCHARGE MEDICATION LIST. Insulin Orders? [No] Diagnosis: Diabetes Initiate hypo and hyperglycemia protocols for BG <70 and BG >375. May check BG prn for signs/symptoms of dysglycemia. Frequency of BG checks: [AC/Meal/HS] Basal Insulin: [] Lantus 100 units / ml inject subq as follows: [] [] Other: [] Correction Insulin: - Select the type of insulin below [Choose: Novolog/Humalog]100 units /ml insulin inject subq per orders indicate below [] LOW DOSE [] MODERATE DOSE [] MODERATE/HIGH DOSE [] HIGH DOSE GB UNITS GB UNITS GB UNITS GB UNITS 61-140 0 UNITS 61-140 0 UNITS 61-140 0 UNITS 61-140 0 UNITS 141-175 1 UNITS 141-175 1 UNITS 141-175 2 UNITS 141-175 3 UNITS 176-225 2 UNITS 176-225 3 UNITS 176-225 4 UNITS 176-225 5 UNITS 226-275 3 UNITS 226-275 5 UNITS 226-275 6 UNITS 226-275 7 UNITS 276-325 4 UNITS 276-325 7 UNITS 276-325 8 UNITS 276-325 9 UNITS 326-375 5 UNITS 326-375 9 UNITS 326-375 10 UNITS 326-375 11 UNITS >375 CONTACT MD >375 CONTACT MD >375 CONTACT MD >375 CONTACT MD Custom Dosing: [Choose: None/Novolog/Humalog] 100 units/ml Insulin inject subq as follows: GB Units 61-140 [] Units 141-175 [] Units 176-225 [] Units 226-275 [] Units 276-325 []Units 326-375 [] Units >375 Contact MD Allergies and Adverse Reactions: Allergies Allergy/AdvReac Type Severity Reaction Status Date / Time No Known Drug Allergies Allergy Verified 06/01/17 13:56 - Medications New Prescriptions: Amox/Clav 500/125 [Augmentin 500/125] 1 tab PO BID #14 tablet Azithromycin [Zithromax] 250 mg PO DAILY #4 tablet - Diet Type: Geriatric Texture: Regular Liquids: Thin May have monthly special meal: Yes - Therapies | Activity Therapy: Evaluation | Treat if indicated: PT, OT Rehabilitation Potential: Maximize functional status Activity: Activity as Tolerated Weight Bearing: Full Weight Assistance Devices: Walker Additional Instructions: May see Dr. Muniz on arrival to [facility]. Follow Up: May see Dr. Muniz on arrival to [facility]"
--- NOTE | 2017-06-04 12:19 | DISCHARGE SUMMARY ---
Discharge Summary Discharge Date: 06/04/17 Discharging Provider: [facility] Primary Care Provider: Dr. Arzola Condition at Discharge: Stable Discharge Disposition: SNF DC/Xfer Discharge Facility Name: [facility] - DIAGNOSES Admission Diagnoses: (1) Pneumonia (2) Generalized weakness (3) Prostate cancer (4) Migraine Discharge Diagnoses with Status of Each Condition: (1) Pneumonia room air 95% of O2 Sats, no cough, no fever, chill. WBC continue to down, D/c to SNF to continue antibiotics course (2) Generalized weakness better. PT recommend to SNF. Pt is D[facility]C to [facility] (3) Prostate cancer continue to be managed by pt's oncologist as out-pt (4) Migraine stable, no headache. - HPI History of Present Illness: refer from Ms. Trimble's HPI on 06/02/17 as the following: Mr Adler is a pleasant 81yo M with history of prostate CA, under treatment with Lupron and doing well. He reports occasional migraines, under control with propranolol. Patient reports he was in his usual state of health until the Thursday when he got a sore throat. Today, he was getting dressed and felt weak, he slid to the floor and had no injury, he did not lose consciousness. He has cough, rarely productive of sputum, no fever or chills but states he is always cold. He has had mild congestion in the chest bt no wheezing. Of note his was admitted last month with pneumonia and responded well to antibx therapy. - HOSPITAL COURSE Hospital Course: pt was admitted for pneumonia. pt is well response to antibiotic treatment. PT/ OT evaluated and treated pt, and recommend pt to SNF for further intervention. Pt was prescribed antibiotics to finish the antibiotics course. - ALLERGIES Allergies/Adverse Reactions: Allergies Allergy/AdvReac Type Severity Reaction Status Date / Time No Known Drug Allergies Allergy Verified 06/01/17 13:56 - MEDICATIONS Home Medications: Ambulatory Orders Medication Instructions Recorded Confirmed Aspirin [Aspirin EC] 81 mg PO DAILY 01/06/17 06/01/17 Atorvastatin [Lipitor] 20 mg PO QPM 01/06/17 06/01/17 Folic Acid 800 mcg PO DAILY 01/06/17 06/01/17 [place]-3/Dha/Epa/Fish Oil [Fish Oil 1,200 mg PO DAILY 01/06/17 06/01/17 1,200 mg Softgel] Rizatriptan Benzoate [Rizatriptan] 5 mg PO PRN PRN 01/06/17 06/01/17 Multivitamin [Theragran] 1 tab PO DAILY 06/01/17 06/01/17 Propranolol HCl [Propranolol HCl 80 mg PO DAILY 06/01/17 06/01/17 ER] Amox/Clav 500/125 [Augmentin 1 tab PO BID #14 tablet 06/04/17 500/125] Azithromycin [Zithromax] 250 mg PO DAILY #4 tablet 06/04/17 - PHYSICAL EXAM AT DISCHARGE General Appearance: positive: No acute distress, Alert. negative: Lethargic Eyes Bilateral: positive: Normal inspection, PERRL, No lid inflammation, Conjunctivae nml ENT: positive: ENT inspection nml, Pharynx nml, No signs of dehydration. negative: Purulent nasal drainage, Pharyngeal erythema, Oral lesions, Dry mucous membranes Neck: positive: Nml inspection, Thyroid nml, No JVD, Trachea midline. negative : Thyromegaly, Lymphadenopathy (R), Lymphadenopathy (L), Stiff neck, Carotid bruit, Swelling/bruising, Tracheal deviation Respiratory: positive: Chest non-tender, No respiratory distress, Breath sounds nml. negative: Wheezes, Rales, Rhonchi Cardiovascular: positive: Regular rate & rhythm, No murmur, No gallop. negative : Irregularly irregular, Extrasystoles, Tachycardia, Bradycardia, JVD present, Systolic murmur, Diastolic murmur Peripheral Pulses: positive: 2+ Abdomen: positive: Non-tender, No organomegaly, Nml bowel sounds, No distention. negative: Tenderness, Guarding, Rebound Back: positive: Nml inspection. negative: CVA tenderness (R), CVA tenderness (L ) Skin: positive: Color nml, No rash, Warm, Dry. negative: Cyanosis, Diaphoresis , Pallor Extremities: positive: Non-tender, Full ROM, Nml appearance. negative: Calf tenderness, Joint swelling, Lenka's sign/cords Neurologic/Psychiatric: positive: Sensation nml, Mood/affect nml. negative: Weakness, Sensory loss, Facial droop, Slurred/abnml speech, Depressed mood/ affect - LABS Result Diagrams: 06/04/17 04:25 06/04/17 04:25 - FOLLOW UP Follow Up: Pt is d/c to [facility] SNF for further intervention, follow up medical provider at [facility] on the arrival to [facility], and follow up oncologist as out-pt. - TIME SPENT Time Spent in Discharge (Minutes): 45
[2017-06-04 14:10] VITALS: BP 146/58
== END 2017-06-04 14:42 | DRG 195 ==
LOC: ED 13:42 → MS3 17:36
PROVIDERS: ADMIT Nurse Practitioner Acute Care; ATTEND Nurse Practitioner Gerontology
DX: J18.1 Lobar pneumonia, unspecified organism (principal); J18.9 Pneumonia, unspecified organism; G43.909 Migraine, unspecified, not intractable, without status migrainosus; K44.9 Diaphragmatic hernia without obstruction or gangrene; C61 Malignant neoplasm of prostate; R53.1 Weakness; F17.220 Nicotine dependence, chewing tobacco, uncomplicated; M19.90 Unspecified osteoarthritis, unspecified site; G89.29 Other chronic pain; M54.9 Dorsalgia, unspecified; E78.00 Pure hypercholesterolemia, unspecified; Z79.82 Long term (current) use of aspirin; Z91.81 History of falling; Z86.19 Personal history of other infectious and parasitic diseases
CPT/HCPCS: 36415; 71046; 80053; 81001; 81003; 83605; 83690; 83735; 84484; 85025; 87040; 87086; 87275; 87276; 93005; 94640; 96365; 99284; 99285

== ENCOUNTER 2017-06-25 08:46 | Emergency (ER) | payer MEDICARE ==
[2017-06-25] MEDS ORDERED: ACETAMINOPHEN 325 MG TABLET PO STA (09:13)
[2017-06-25 09:31] LABS: BASOPHILS # (AUTO) 0.1 10^3/uL (0.0-0.1); BASOPHILS % (AUTO) 0.6 %; EOSINOPHILS # (AUTO) 0.1 10^3/uL (0.0-0.7); EOSINOPHILS % (AUTO) 1.4 %; HGB - HEMOGLOBIN 13.6 g/dL (14.0-18.0); LYMPHOCYTES # (AUTO) 4.4 10^3/uL (1.5-3.5); LYMPHOCYTES % (AUTO) 50.2 %; MEAN CORPUSCULAR HEMOGLOBIN 33.7 pg (27.0-31.0); MEAN CORPUSCULAR HGB CONC 33.5 g/dL (32.0-36.0); MEAN CORPUSCULAR VOLUME 100.7 fL (80.0-94.0); MEAN PLATELET VOLUME 9.8 fL (7.4-11.4); MONOCYTES # (AUTO) 0.5 10^3/uL (0.0-1.0); MONOCYTES % (AUTO) 5.6 %; NEUTROPHILS # (AUTO) 3.7 10^3/uL (1.5-6.6); NEUTROPHILS % (AUTO) 42.2 %; PLT - PLATELET COUNT 221 10^3/uL (130-450); RED BLOOD COUNT 4.02 10^6/uL (4.70-6.10); RED CELL DISTRIBUTION WIDTH 12.6 % (12.0-15.0); WHITE BLOOD COUNT 8.8 x10^3/uL (4.8-10.8)
[2017-06-25 09:38] LABS: ALBUMIN 3.6 g/dL (3.2-5.5); ALBUMIN/GLOBULIN RATIO 1.2 (1.0-2.2); BILIRUBIN,TOTAL 0.7 mg/dL (0.2-1.0); CALCIUM 9.4 mg/dL (8.5-10.3); CREATININE 0.7 mg/dL (0.6-1.2); TOTAL PROTEIN 6.7 g/dL (6.7-8.2)
--- NOTE | 2017-06-25 10:05 | CT Preliminary Report ---
Exam: CT HEAD W/O IMPRESSION: 1. 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 2. Mild bilateral ethmoid chronic sinusitis. [facility] SITE ID: [id number]
--- NOTE | 2017-06-25 10:05 | CT Report ---
EXAM: CT HEAD EXAM DATE: 06/25/2017 09:58 AM. CLINICAL HISTORY: Headache, and left sided neuro deficits. Left side facial numbness. COMPARISON: None. TECHNIQUE: Multiaxial CT images were obtained from the foramen magnum to the vertex. Reformats: Coron al. IV contrast: None. In accordance with CT protocol optimization, one or more of the following dose reduction techniques w ere utilized for this exam: automated exposure control, adjustment of mA and/or KV based on patient s ize, or use of iterative reconstructive technique. FINDINGS: Parenchyma: No intraparenchymal hemorrhage. No evidence of mass, midline shift, or CT findings of acu te infarction. Erickson-white differentiation is distinct. Diffuse chronic microangiopathic white matter changes are evident. Extraaxial Spaces: Normal for age. No subdural or epidural collections identified. Ventricles: The ventricles and cortical sulci are enlarged, consistent with age-related tissue loss. Sinuses and orbits: Mild soft tissue thickening within some bilateral ethmoid air cells. Otherwise, t he imaged paranasal sinuses, orbits, and mastoids show no significant abnormality. Bones: No evidence of fracture or calvarial defect. Other: None. IMPRESSION: 1. 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 2. Mild bilateral ethmoid chronic sinusitis. [facility] Referring Provider Line: [phone] SITE ID: [id number]
[2017-06-25 11:20] LABS: BILIRUBIN,URINE NEGATIVE (NEGATIVE); GLUCOSE, URINE (UA) NEGATIVE (NEGATIVE); KETONES,URINE (UA) NEGATIVE (NEGATIVE); LEUKOCYTE ESTERASE, URINE NEGATIVE (NEGATIVE); NITRITE,URINE NEGATIVE (NEGATIVE); OCCULT BLOOD,URINE NEGATIVE (NEGATIVE); PROTEIN,URINE NEGATIVE (NEGATIVE); UROBILINOGEN,URINE 0.2 (NORMAL) E.U./dL (NORMAL)
[2017-06-25 11:26] LABS: CLARITY,URINE SL. CLOUDY (CLEAR)
[2017-06-25 11:29] LABS: AMORPHOUS SEDIMENT,UR Moderate /LPF; BACTERIA,URINE Many /HPF (None Seen); RBC,URINE None Seen /HPF (0-5); SQUAMOUS EPITHELIAL CELL,UR RARE Squamous (<= Few)
--- NOTE | 2017-06-25 11:44 | ED Physician Documentation ---
History of Present Illness - Stated complaint Stated Complaint: LT SIDE NUMBNESS - Chief complaint Chief Complaint: Neuro - History obtained from History obtained from: Patient, Family (spouse) - History of Present Illness Timing: Yesterday - Additonal information Additional information: The patient presents via ambulance stating, "My memory isn't working worth a shit. He has history of dementia, and medical history is more reliably obtained from his . She reports that the patient experienced left arm and face numbness and weakness yesterday after physical therapy, and that he seemed fatigue and demonstrated difficulty walking. He had similar symptoms before his hospitalization for pneumonia 3 weeks ago. After that hospitalization he was discharged to [facility], and has been undergoing physical therapy. He reports a frontal headache. He denies fever, chest pain, cough, nausea, vomiting, or dysuria. Past medical history is significant for migraine headaches and for prostate cancer. He is right-hand dominant. His reports that he is more cognizant now than he was earlier today or yesterday. Review of Systems Constitutional: denies: Fever Eyes: denies: Decreased vision Ears: denies: Tinnitus/ringing Nose: denies: Congestion Throat: denies: Sore throat Cardiac: denies: Chest pain / pressure Respiratory: denies: Dyspnea, Cough GI: denies: Abdominal Pain, Nausea, Vomiting : denies: Dysuria Skin: denies: Rash Musculoskeletal: denies: Extremity swelling Neurologic: reports: Generalized weakness, Numbness (left sided), Headache ( frontal) PD PAST MEDICAL HISTORY - Past Medical History Past Medical History: Yes Cardiovascular: High cholesterol Respiratory: None Neuro: Headache/migraine Endocrine/Autoimmune: None GI: Colon polyps : Other (Prostate CA) HEENT: Other Psych: None Musculoskeletal: Osteoarthritis Derm: Herpes zoster - Past Surgical History General: Appendectomy, Hiatal hernia repair HEENT: Cataracts - Present Medications Home Medications: Ambulatory Orders Medication Instructions Recorded Confirmed Aspirin [Aspirin EC] 81 mg PO DAILY 01/06/17 06/01/17 Atorvastatin [Lipitor] 20 mg PO QPM 01/06/17 06/01/17 Folic Acid 800 mcg PO DAILY 01/06/17 06/01/17 [place]-3/Dha/Epa/Fish Oil [Fish Oil 1,200 mg PO DAILY 01/06/17 06/01/17 1,200 mg Softgel] Rizatriptan Benzoate [Rizatriptan] 5 mg PO PRN PRN 01/06/17 06/01/17 Multivitamin [Theragran] 1 tab PO DAILY 06/01/17 06/01/17 Propranolol HCl [Propranolol HCl 80 mg PO DAILY 06/01/17 06/01/17 ER] Amox/Clav 500/125 [Augmentin 1 tab PO BID #14 tablet 06/04/17 500/125] Azithromycin [Zithromax] 250 mg PO DAILY #4 tablet 06/04/17 Nitrofurantoin [Macrobid] 100 mg PO BID #10 capsule 06/25/17 - Allergies Allergies/Adverse Reactions: Allergies Allergy/AdvReac Type Severity Reaction Status Date / Time No Known Drug Allergies Allergy Verified 06/01/17 13:56 - Social History Does the pt smoke?: No Smoking Status: Former smoker PD ED PE NORMAL - Vitals Vital signs reviewed: Yes (systolic hypertension) - General General: Alert and oriented X 3, Well developed/nourished - HEENT HEENT: Atraumatic, EOMI, Moist mucous membranes, Pharynx benign - Neck Neck: Supple, no meningeal sign, No adenopathy, No JVD - Cardiac Cardiac: RRR - Respiratory Respiratory: No respiratory distress, Clear bilaterally - Abdomen Abdomen: Soft, Non tender - Back Back: No CVA TTP - Derm Derm: No rash - Neuro Neuro: Alert and oriented X 3, molecular spectroscopist 2-12 intact, No motor deficit, Normal speech , Other (Slightly decreased light touch sensation on the left leg compared to the right. No sensory deficit detected on the face or upper extremity.) Eye Opening: Spontaneous Motor: Obeys Commands Verbal: Oriented GCS Score: 15 Results - Vitals Vitals: Oxygen O2 Source Room air - Labs Labs: Microbiology 06/25/17 11:10 Urine Culture - Final Urine,Clean Catch No growth Laboratory Tests 06/25/17 06/25/17 06/25/17 09:21 09:21 10:22 WBC 8.8 RBC 4.02 L Hgb 13.6 L Hct 40.5 L MCV 100.7 H MCH 33.7 H MCHC 33.5 RDW 12.6 Plt Count 221 MPV 9.8 Neut # 3.7 Lymph # 4.4 H [place] # 0.5 Eos # 0.1 Baso # 0.1 Absolute Nucleated RBC 0.02 Nucleated RBC % 0.2 Sodium 138 Potassium 3.8 Chloride 103 Carbon Dioxide 28 Anion Gap 7.0 BUN 17 Creatinine 0.7 Estimated GFR (MDRD) 109 Glucose 147 H Lactic Acid 1.5 Calcium 9.4 Total Bilirubin 0.7 AST 20 ALT 22 Alkaline Phosphatase 55 Total Protein 6.7 Albumin 3.6 Globulin 3.1 Albumin/Globulin Ratio 1.2 Lipase 35 Urine Color Urine Clarity Urine pH Ur Specific [place] Urine Protein Urine Glucose (UA) Urine Ketones Urine Occult Blood Urine Nitrite Urine Bilirubin Urine Urobilinogen Ur Leukocyte Esterase Urine RBC Urine WBC Ur Squamous Epith Cells Amorphous Sediment Urine Bacteria Ur Microscopic Review Urine Culture Comments 06/25/17 11:10 WBC RBC Hgb Hct MCV MCH MCHC RDW Plt Count MPV Neut # Lymph # [place] # Eos # Baso # Absolute Nucleated RBC Nucleated RBC % Sodium Potassium Chloride Carbon Dioxide Anion Gap BUN Creatinine Estimated GFR (MDRD) Glucose Lactic Acid Calcium Total Bilirubin AST ALT Alkaline Phosphatase Total Protein Albumin Globulin Albumin/Globulin Ratio Lipase Urine Color YELLOW Urine Clarity SL. CLOUDY Urine pH 7.0 Ur Specific [place] 1.015 Urine Protein NEGATIVE Urine Glucose (UA) NEGATIVE Urine Ketones NEGATIVE Urine Occult Blood NEGATIVE Urine Nitrite NEGATIVE Urine Bilirubin NEGATIVE Urine Urobilinogen 0.2 (NORMAL) Ur Leukocyte Esterase NEGATIVE Urine RBC None Seen Urine WBC 0-3 Ur Squamous Epith Cells RARE Squamous Amorphous Sediment Moderate Urine Bacteria Many H Ur Microscopic Review INDICATED Urine Culture Comments INDICATED - Rads (name of study) Head CT Radiology: Prelim report reviewed, EMP read contemporaneously, See rad report ( 1. Generalized age-related cortical atrophic changes in pattern compatible with diffuse chronic microangiopathic white matter changes without evidence of acute intracranial abnormality. 2. Mild bilateral ethmoid chronic sinusitis.) PD MEDICAL DECISION MAKING - ED course Complexity details: reviewed old records, reviewed results, re-evaluated patient , considered differential, d/w patient, d/w family ED course: The patient's presentation is suggestive of generalized weakness and headache, with mild dehydration and urinalysis suggestive of urinary tract infection, with bacteriuria. CBC is normal and chemistry panel is unremarkable. Head CT reveals no acute intracranial abnormality, but does reveal evidence of chronic sinusitis. It is unclear whether his headache is more likely caused by migraine or by chronic sinusitis. There is no evidence of intracranial hemorrhage or mass effect. Treatment in the emergency department included administration of normal saline 1 L IV, and acetaminophen 1 g IV. His headache improved with the above treatment, and he demonstrated ability to ambulate several times in the hallway without evidence of focal weakness. He does demonstrate slight instability when ambulating, but his states that is his baseline. He is being discharged with prescription for Macrobid. I discussed with him and his the results of the workup, outpatient treatment and follow-up, as well as potentially worrisome signs or symptoms that should prompt reevaluation in the emergency department. Departure - Departure Disposition: Home, Self Care Clinical Impression: Dehydration Urinary tract infection Qualifiers: Urinary tract infection type: acute cystitis Hematuria presence: without hematuria Qualified Code(s): N30.00 - Acute cystitis without hematuria Headache Qualifiers: Headache type: unspecified Headache chronicity pattern: episodic headache Intractability: not intractable Qualified Code(s): R51 - Headache Condition: Stable Instructions: ED Dehydration, ED Cephalgia Unspecified, ED UTI Cystitis Male Follow-Up: Varun Arzola MD [Primary Care Provider] - Prescriptions: Nitrofurantoin [Macrobid] 100 mg PO BID #10 capsule Comments: Drink plenty of fluids, including cranberry juice. Take Macrobid twice daily as prescribed. Follow up with your primary physician within 1-2 weeks. Call to schedule appointment. Return to the emergency department if you develop increasing headache, fever with shaking chills, progressive weakness or worsening difficulty walking, or otherwise worsening symptoms. Discharge Date/Time: 06/25/17 14:06
[2017-06-25] MEDS ORDERED: SODIUM CHLORIDE 0.9% 1,000 ML IV ONE (11:45)
[2017-06-25] MEDS ORDERED: ACETAMINOPHEN 1,000 MG/100 ML 100 ML IV STA (11:46)
[2017-06-25 13:56] VITALS: BP 145/61
== END 2017-06-25 14:06 | disposition home or self-care (01) ==
LOC: ED 08:46
DX: E86.0 Dehydration (principal); N30.00 Acute cystitis without hematuria; R51 Headache; F03.90 Unspecified dementia, unspecified severity, without behavioral disturbance, psychotic disturbance, mood disturbance, and anxiety; Z85.46 Personal history of malignant neoplasm of prostate; E78.00 Pure hypercholesterolemia, unspecified; Z86.010 Personal history of colon polyps; M19.90 Unspecified osteoarthritis, unspecified site; Z79.82 Long term (current) use of aspirin; Z87.891 Personal history of nicotine dependence; J32.2 Chronic ethmoidal sinusitis
CPT/HCPCS: 36415; 70450; 80053; 81001; 83605; 83690; 85025; 87086; 96361; 96365; 99284; A9270; J0131; 81003

== ENCOUNTER 2017-09-14 14:52 | Outpatient (CLI) | payer MEDICARE ==
--- NOTE | 2017-09-15 07:48 | MRI Report ---
Procedure Date: 09/14/2017 Accession Number: [id number] / [id number] Procedure: MRI - Brain W/O CPT Code: FULL RESULT: EXAM: MRI BRAIN WITHOUT CONTRAST EXAM DATE: 09/14/2017 04:10 PM. CLINICAL HISTORY: Bradykinesia and shuffling gait. COMPARISON: No prior MRI. TECHNIQUE: Multiplanar, multisequence T1-weighted and fluid-sensitive MR sequences of the brain were performed. Sequences optimized for routine evaluation. Other: None. IV Contrast: None. FINDINGS: Brain Volume: Mild generalized probably age-related cerebral volume loss. Parenchyma/Dura: No restricted diffusion to suggest acute or recent ischemic infarct. No cerebral hemorrhage. No mass effect, midline shift or abnormal subdural fluid collection. Ecvo-me-hvveqkhg cerebral white matter disease, these findings are nonspecific but most consistent with chronic small vessel ischemic disease which is most notable in the cerebral white matter, basal ganglia, thalami and brainstem. Ventricles/Cisterns: Mild ventriculomegaly, probably from brain volume loss. No abnormal extra-axial fluid collection or hemorrhage. Orbits: Previous lens extraction on the left. Sella [place]: No space-occupying mass. IAC: Symmetric and unremarkable. Vasculature: The major arterial skull base flow voids are present. Sinuses: Mild multifocal nonspecific paranasal sinus mucosal thickening, mostly ethmoid. No air-fluid level. Clear mastoids. Bones: Prominent degenerative disk disease and spurring at the C3-C4 level. No focal pathologic-appearing marrow signal changes in the skull or clivus. Other: None. IMPRESSION: 1. No MRI evidence for acute intracranial abnormality. 2. Mild generalized cerebral volume loss consistent with aging and atrophy. 3. Moderate multifocal nonspecific white matter disease, most consistent with aging and chronic microangiopathy. 4. Mild nonspecific paranasal sinus mucosal thickening. RADIA
== END 2017-09-14 14:53 | disposition home or self-care (01) ==
LOC: DI 14:52
PROVIDERS: ATTEND Psychiatry & Neurology Neurology
DX: R26.89 Other abnormalities of gait and mobility (principal); R25.8 Other abnormal involuntary movements; R53.1 Weakness; R90.82 White matter disease, unspecified
CPT/HCPCS: 70551

== ENCOUNTER 2018-10-27 13:18 | Outpatient (CLI) | payer MEDICARE, MEDICAID ==
--- NOTE | 2018-10-28 09:14 | XRAY Report ---
Reason: CYST Procedure Date: 10/27/2018 Accession Number: [id number] / [id number] Procedure: XR - Wrist 3 View LT CPT Code: FULL RESULT: EXAM: LEFT WRIST RADIOGRAPHY EXAM DATE: 10/27/2018 01:31 PM. CLINICAL HISTORY: Left medial wrist nonpainful cyst near the first carpometacarpal joint for 2 weeks. COMPARISON: None. TECHNIQUE: 3 views. FINDINGS: Bones: There is diffuse mild to moderate heterogeneous osteopenic appearance without fractures or bone lesions. Joints: Moderate to severe degenerative arthritis in the distal radioulnar joint, radiocarpal joint, intercarpal joints visualized, predominantly in the radiocarpal joint. No subluxations. Soft Tissues: There is soft tissue swelling or thickening in the wrist diffusely, predominantly in the dorsal distal wrist. There is a low density calcified nodule near the ulnar styloid process, approximately 4 x 5 mm; otherwise, no soft tissue calcification.. IMPRESSION: 1. Moderate to severe osteoarthritis in the left wrist, predominantly in the radiocarpal joint. 2. Diffuse mild to moderate heterogeneous osteopenic appearance without fracture or destructive lesion. A small low density calcified body near the ulnar styloid process which may represent an old nonunion avulsion fracture of the ulnar styloid process versus a non-specific soft tissue calcification. 3. Soft tissue swelling in the left wrist, predominantly in the distal dorsal wrist, non-specific finding. RADIA
== END 2018-10-27 13:19 | disposition home or self-care (01) ==
LOC: DI 13:18
PROVIDERS: ATTEND Family Medicine
DX: M19.032 Primary osteoarthritis, left wrist (principal); M85.88 Other specified disorders of bone density and structure, other site; R22.32 Localized swelling, mass and lump, left upper limb

== ENCOUNTER 2019-08-23 12:07 | Outpatient (CLI) | payer MEDICARE, MEDICAID | END 2019-08-23 12:08 | disposition critical access hospital (66) | LOC: EMS 12:07 | PROVIDERS: ATTEND Surgery | DX: R41.82 Altered mental status, unspecified (principal); R53.1 Weakness; R09.89 Other specified symptoms and signs involving the circulatory and respiratory systems | CPT/HCPCS: A0425; A0427 ==

== ENCOUNTER 2019-08-23 12:12 | Observation (INO) | payer MEDICARE, MEDICAID ==
--- NOTE | 2019-08-23 12:32 | ED Physician Documentation ---
PD HPI ALTERED MENTAL STATUS - Stated complaint Stated Complaint: DECREASED LOC - Chief complaint Chief Complaint: Neuro - History obtained from History obtained from: Patient, Family ( by phone), EMS - History of Present Illness Timing - onset: Today (83yo Male with parkinson's/Lewy Body dementia has spells of weakness and confusion and had a particulary bad one today. En route, HR was in the 30s and received atropine 0.5mg IV atropine with improvement back to baseline.) Review of Systems Unable to obtain: Dementia PD PAST MEDICAL HISTORY - Past Medical History Cardiovascular: High cholesterol Respiratory: None Endocrine/Autoimmune: None GI: Colon polyps : Other (Prostate CA) HEENT: Other Psych: None Musculoskeletal: Osteoarthritis Derm: Herpes zoster - Past Surgical History General: Appendectomy, Hiatal hernia repair HEENT: Cataracts - Present Medications Home Medications: Ambulatory Orders Medication Instructions Recorded Confirmed Aspirin [Aspirin EC] 81 mg PO DAILY 01/06/17 08/23/19 Rizatriptan Benzoate [Rizatriptan] 5 mg PO PRN PRN 01/06/17 08/23/19 Propranolol HCl [Propranolol HCl 20 mg PO QID 06/01/17 08/23/19 ER] Carbidopa/Levodopa 25/100 [Sinemet 1.5 tab PO QID 01/05/18 08/23/19 25 mg/100 mg] Melatonin 1 tab PO DAILY 01/05/18 08/23/19 Multivit-Min/FA/Lycopen/Lutein 1 tab PO DAILY 01/05/18 06/28/19 [Centrum Silver Men Tablet] Atorvastatin Calcium 20 mg PO QPM 08/23/19 QUEtiapine [SEROquel] 12.5 mg ORAL DAILY PM 08/23/19 08/23/19 - Allergies Allergies/Adverse Reactions: Allergies Allergy/AdvReac Type Severity Reaction Status Date / Time No Known Drug Allergies Allergy Verified 08/23/19 12:18 - Social History Does the pt smoke?: No Smoking Status: Former smoker PD ED PE NORMAL - Vitals Vital signs reviewed: Yes - General General: Other (A/O to year/preseident, but not why he's here.) - HEENT HEENT: PERRL, EOMI - Neck Neck: Supple, no meningeal sign, No bony TTP - Cardiac Cardiac: No murmur, Other (bradycardic) - Respiratory Respiratory: No respiratory distress, Clear bilaterally - Abdomen Abdomen: Normal bowel sounds, Soft, Non tender - Back Back: No CVA TTP, No spinal TTP - Derm Derm: Normal color, Warm and dry - Extremities Extremities: No edema, No calf tenderness / cord - Neuro Neuro: No motor deficit, No sensory deficit, Normal speech Eye Opening: Spontaneous Motor: Obeys Commands Verbal: Confused GCS Score: 14 Results - Vitals Vitals: Vital Signs - 24 hr 08/23/19 12:18 Temperature 36.6 C Heart Rate 57 L Respiratory 12 Rate Blood Pressure 120/61 O2 Saturation 96 Oxygen O2 Source Room air - EKG (time done) 1219 Rate: Rate (enter#) (46) Rhythm: Sinus bradycardia Hoffman: Normal Intervals: Normal [place] QRS: Normal Ischemia: Q waves (inferior). No: ST elevation c/w ischemia, ST elevation c/w repol, ST depression Computer interpretation: Agree with computer - Labs Labs: Laboratory Tests 08/23/19 08/23/19 08/23/19 12:51 12:51 12:51 WBC 11.5 H RBC 3.91 L Hgb 13.0 L Hct 40.3 L MCV 103.1 H MCH 33.2 H MCHC 32.3 RDW 12.6 Plt Count 187 MPV 11.8 H Neut # (Auto) 6.2 Lymph # (Auto) 4.4 H [place] # (Auto) 0.6 Eos # (Auto) 0.2 Baso # (Auto) 0.1 Absolute Nucleated RBC 0.00 Nucleated RBC % 0.0 Sodium 142 Potassium 4.0 Chloride 108 Carbon Dioxide 26 Anion Gap 8.0 BUN 17 Creatinine 0.7 Estimated GFR (MDRD) 108 Glucose 124 H Calcium 9.2 Magnesium 2.3 Total Bilirubin 0.8 AST 15 ALT < 10 L Alkaline Phosphatase 61 Troponin I High Sens Total Protein 6.3 L Albumin 3.7 Globulin 2.6 Albumin/Globulin Ratio 1.4 Lipase 39 TSH 2.07 08/23/19 12:51 WBC RBC Hgb Hct MCV MCH MCHC RDW Plt Count MPV Neut # (Auto) Lymph # (Auto) [place] # (Auto) Eos # (Auto) Baso # (Auto) Absolute Nucleated RBC Nucleated RBC % Sodium Potassium Chloride Carbon Dioxide Anion Gap BUN Creatinine Estimated GFR (MDRD) Glucose Calcium Magnesium Total Bilirubin AST ALT Alkaline Phosphatase Troponin I High Sens 3.5 Total Protein Albumin Globulin Albumin/Globulin Ratio Lipase TSH PD MEDICAL DECISION MAKING - ED course ED course: per recent increase in propranolol from 10mg BID to 20mg BID mid last week. He takes these for migraines. 83-year-old gentleman presents with symptomatic bradycardia, he is on beta- blockers and per the they were increased last week because of poor migraine control. This probably caused the increase in syncopal/altered spells and he had a particularly bad one today. He will be placed in observation to monitor his bradycardia off of the beta-blockade. Departure - Departure Disposition: ED Place in Observation Clinical Impression: Parkinsons disease, Bradycardia Lewy body dementia Qualifiers: Dementia behavioral disturbance: without behavioral disturbance Qualified Code(s): G31.83 - Dementia with Lewy bodies; F02.80 - Dementia in other diseases classified elsewhere without behavioral disturbance Syncope Qualifiers: Syncope type: unspecified Qualified Code(s): R55 - Syncope and collapse Condition: Fair Discharge Date/Time: 08/23/19 14:58
[2019-08-23 12:57] LABS: BASOPHILS # (AUTO) 0.1 10^3/uL (0.0-0.1); BASOPHILS % (AUTO) 0.4 %; EOSINOPHILS # (AUTO) 0.2 10^3/uL (0.0-0.7); EOSINOPHILS % (AUTO) 1.8 %; LYMPHOCYTES # (AUTO) 4.4 10^3/uL (1.5-3.5); LYMPHOCYTES % (AUTO) 37.8 %; MEAN CORPUSCULAR HEMOGLOBIN 33.2 pg (27.0-31.0); MEAN CORPUSCULAR HGB CONC 32.3 g/dL (32.0-36.0); MEAN CORPUSCULAR VOLUME 103.1 fL (80.0-94.0); MEAN PLATELET VOLUME 11.8 fL (7.4-11.4); MONOCYTES # (AUTO) 0.6 10^3/uL (0.0-1.0); MONOCYTES % (AUTO) 5.4 %; NEUTROPHILS # (AUTO) 6.2 10^3/uL (1.5-6.6); NEUTROPHILS % (AUTO) 54.3 %; PLT - PLATELET COUNT 187 10^3/uL (130-450); RED BLOOD COUNT 3.91 10^6/uL (4.70-6.10); RED CELL DISTRIBUTION WIDTH 12.6 % (12.0-15.0); WHITE BLOOD COUNT 11.5 x10^3/uL (4.8-10.8)
[2019-08-23 13:12] LABS: ALBUMIN 3.7 g/dL (3.2-5.5); ALBUMIN/GLOBULIN RATIO 1.4 (1.0-2.2); ALKALINE PHOSPHATASE 61 IU/L (42-121); ALT ALANINE AMINOTRANSFERASE < 10 IU/L (10-60); AST ASPARTATE AMINOTRANSFERASE 15 IU/L (10-42); BILIRUBIN,TOTAL 0.8 mg/dL (0.2-1.0); BUN - BLOOD UREA NITROGEN 17 mg/dL (6-20); CALCIUM 9.2 mg/dL (8.5-10.3); CARBON DIOXIDE - CO2 26 mmol/L (21-32); CHLORIDE 108 mmol/L (101-111); CREATININE 0.7 mg/dL (0.6-1.2); GLUCOSE 124 mg/dL (70-100); LIPASE 39 U/L (22-51); MAGNESIUM 2.3 mg/dL (1.7-2.8); SODIUM 142 mmol/L (135-145); TOTAL PROTEIN 6.3 g/dL (6.7-8.2)
[2019-08-23] MEDS ORDERED: SODIUM CHLORIDE FLUSH 0.9% 10 ML SYRINGE IVP PRN (15:48)
[2019-08-23] MEDS ORDERED: ACETAMINOPHEN 325 MG TABLET PO PRN (15:48)
[2019-08-23] MEDS ORDERED: SUMAtriptan 25 MG TABLET PO PRN (15:51)
--- NOTE | 2019-08-23 16:28 | HISTORY & PHYSICAL EXAMINATION ---
DATE OF SERVICE: 08/23/2019 Physician: Pat Stevens MD HISTORY OF PRESENT ILLNESS: This is an 83-year-old white male with a history of prostate cancer, on Lupron therapy at the [facility] here, has a history of Lewy body dementia without neurobehavioral disturbances and Parkinson's disease on medications. He gets migraines, which have been treated with various agents. Propranolol is the most recent medication and that was recently increased from 10 mg b.i.d. to 20 mg b.i.d., which gave him the best control ever. The patient gets episodes of weakness and confusion that are near-syncopal, which are frequent. He had a particularly bad one today that occurred with him having syncope on the dining table. EMS was called and found him to have a heart rate in the 30s. He received atropine 0.5 mg IV en route with improvement back to his baseline heart rate in the 50s. The patient was confused in the ER, which may be his baseline, but speaking normally and awake. He is being placed in observation for management of his symptomatic bradycardia. PAST MEDICAL HISTORY: Lewy body dementia, Parkinson's disease, Prostate cancer, elevated cholesterol, DJD, cataracts, appendectomy and hernia repair. ALLERGIES: NONE. MEDICATIONS 1. Baby aspirin daily. 2. Rizatriptan 5 mg p.o. daily p.r.n. 3. Propranolol 20 mg p.o. b.i.d. 4. Carbidopa/levodopa 25/100 mg p.o. 2 tablets q.i.d. 5. Melatonin 1 tablet daily. 6. Centrum Silver for men 1 tablet daily. 7. Lipitor 20 mg q.p.m. 8. Seroquel 12.5 mg orally q.p.m. FAMILY HISTORY: No inherited diseases. SOCIAL HISTORY: The patient is a nonsmoker, whoquit remotely, no alcohol intake, no illicit drug use. He lives at home with his who is his caregiver. REVIEW OF SYSTEMS: A comprehensive review of systems was performed and the pertinent positives are listed. The rest are negative. PHYSICAL EXAMINATION GENERAL: Elderly white male. He is in no distress. Warm and dry. He is oriented to self and time, but not to place. VITAL SIGNS: Blood pressure 159/70, heart rate 50-55 in sinus rhythm. HEENT: Unremarkable. NECK: No JVD at a 30-degree upright angle. CHEST: Clear. HEART: No murmurs. ABDOMEN: Soft. EXTREMITIES: No clubbing, cyanosis or edema. NEUROLOGIC: Nonfocal, poor memory. LABORATORY DATA: Normal electrolytes. Normal BUN and creatinine. Magnesium 2.3. Normal liver tests and alkaline phosphatase. Normal troponin of 3.5. Normal albumin of 3.7 and normal TSH of 2.07. White blood count 11.5, hemoglobin 13 with MCV elevated at 103, platelet count normal at 187. No INR was done. IMAGING: No chest x-ray was done. EKG: Sinus bradycardia at a rate of 46 with a normal MI interval. There is possible QS waves in lead III and aVF and there is diffuse scooping ST segment depressions. Compared to an old EKG, which was from 05/2017, the heart rate is somewhat slower, it was 52 then, other findings are similar. IMPRESSION/DIAGNOSES 1. Syncope, recurrent. 2. Symptomatic bradycardia. 3. Migraines. 4. Lewy body dementia. 5. Parkinson's disease. 6. Anemia. PLAN: Place the patient in Observation status on telemetry. Stop beta blockers. Eventually, he may be able to resume the prior lower dose of Propranolol. Currently, will order Sumatriptan p.r.n. migraines. The patient would need a backup pacemaker in order to increase the Propranolol dose up and his POLST form indicates limited intervention and a DNR status because of the dementia. Continue with his Parkinson's medication. Hold the melatonin, which could add to somnolence and add to syncope. Check orthostatic vital signs and hydrate if a dropping blood pressure is found. Obtain an Echo to evaluate LV and RV contractility and PA pressure, as medication adjustments may be needed. CODE STATUS: DNR. DEEP VENOUS THROMBOSIS PROPHYLAXIS: SCDs. ATTESTATION: The patient is expected to be discharged or transferred to another facility within 96 hours: Yes. cc: Fabian Cherry MD TD: 08/23/2019 16:05 MTDD
[2019-08-23] MEDS: CARBIDOPA/LEVODOPA 25 MG/100 MG TABLET PO SCH ×2 (16:56→20:52)
[2019-08-23] MEDS: SODIUM CHLORIDE FLUSH 0.9% 10 ML SYRINGE IVP SCH (16:57)
--- NOTE | 2019-08-23 18:19 | PHARMACY PROGRESS NOTE ---
- Best Possible Medication History Admit Date and Time: 08/23/19 1336 Processed by: Pharmacy Medication History completed: Yes Secondary Source(s): Physician records, Pharmacy records, Insurance records As the person ultimately responsible for medication therapy, providers are able to order a medication from an existing home medication list in [facility] via the "Reconcile Routine" prior to Confirmation of that medication by family support specialist. Such practice is discouraged except when the physician, in their clinical judgment, deems that a medical need exists for a medication without regard to previous use.
[2019-08-23] MEDS ORDERED: QUEtiapine 25 MG TABLET PO SCH (21:00)
[2019-08-23] MEDS ORDERED: ATORVASTATIN 10 MG TABLET PO SCH (21:00)
[2019-08-24] MEDS: SODIUM CHLORIDE FLUSH 0.9% 10 ML SYRINGE IVP SCH ×2 (00:45→08:28)
[2019-08-24] MEDS ORDERED: PANTOPRAZOLE 40 MG TABLET PO SCH (07:00)
[2019-08-24] MEDS: CARBIDOPA/LEVODOPA 25 MG/100 MG TABLET PO SCH ×2 (08:28→12:16)
[2019-08-24] MEDS ORDERED: polyethylene glycoL 3350 17 GM PACKET PO SCH (09:00)
[2019-08-24] MEDS ORDERED: ASPIRIN EC 81 MG TABLET PO SCH (09:00)
--- NOTE | 2019-08-24 12:01 | Discharge Plan ---
Discharge Plan Problem Reviewed?: Yes Disposition: Home, Self Care Condition: Fair Prescriptions: Propranolol [Inderal] 10 mg PO BID #60 tablet Diet: Regular Activity Restrictions: Activity as Tolerated Shower Restrictions: No Health Concerns: The patient was admitted after a fainting spell at home which was due to symptomatic, severe bradycardia (slow heart rate), at a heart rate of 30, that needed ambulance personnel called to give Atropine to reverse the low heart rate. The cause of the low heart rate is from being on the higher dose of Propranolol that was recently increased. We stopped the Propranolol entirely for 1 day to let it washout, and the heart rate improved to about 60. The patient is being discharged home with order to ONLY USE THE LOWER DOSE OF PROPRANOLOL AND NOT INCREASE IT. Alternatively, he would need a permanent pacemaker inserted for allowing him to have a backup (safe) heart rate (that would go no lower than 50-60) and then the Propranolol dose could be increased upward for migraine management. The Propranolol 10 mg dose was reordered, in case you need it, and prescription was electronically sent to [facility] pharmacy. A combination of medicines for migraine treatment may be needed, but no higher Propranolol than 10 mg twice a day. Resume all other pre-hospitalization medications and management. HAPPY BIRTHDAY today!! ] Plan of Treatment: As above. Care Goals: Provement in symptoms and stabilization are the goals. Assessment: The instructions were given to the patient and also his [id number]. No Smoking: If you smoke, Please STOP! Call for help. Follow-up with: Fabian Cherry MD [Primary Care Provider] -
--- NOTE | 2019-08-24 12:05 | DISCHARGE SUMMARY ---
Discharge Summary Admit Date: 08/23/19 Discharge Date: 08/24/19 Discharging Provider: Dr Pat Stevens Primary Care Provider: Dr Fabian Cherry Code Status: Do Not Attempt Resuscitation Condition at Discharge: Fair Discharge Disposition: 01 Home, Self Care - HPI History of Present Illness: This is an 83-year-old white male with a history of prostate cancer on Lupron therapy, history of Lewy body dementia without behavioral disturbance and Parkinson's disease on medications. He gets migraines which have been treated with various agents and the only one that works with propranolol, the dose was recently increased from 10 mg twice daily to 20 mg twice daily. There have been prior episodes of syncope and near syncope, multiple times. Today while eating, he slumped onto his table and the called EMS. He was found to have a heart rate of 30, received atropine 0.5 mg IV en route with improvement of his heart rate to 50s. He was confused in the ER which is not his baseline. He has been placed in observation for management of his symptomatic bradycardia. His Code status is DNR, per the record. - HOSPITAL COURSE Hospital Course: 1) Recurrent syncope As per history. This is likely related to Parkinson's autonomic dysfunction plus this bradycardia, and the use of Melatonin. 2) Symptomatic bradycardia His Propranolol was entirely stopped. By the following morning his heart rate of 30s to 40s was up to mid 60s. He will have the old dose of Propranolol resumed, 10 mg twice daily, and no higher than this, unless he gets a permanent pacemaker inserted for backup rate for safety. 3) Migraines He will no longer be able to take the higher dose of Propranolol 20 mg twice daily. He will be limited to maximum dose of 10 mg twice daily. There will need to be adjustments made for treating his migraines, based around this limit. This was communicated with the [id number], at bedside, who is taking him home. 4) Lewy body dementia There were no behavioral abnormalities while here. Kept on his nightly Seroquel dose. 5) Parkinson's disease Was kept on his same anti-Parkinsonian meds while here 6) Anemia The Hgb was 13 with a high MCV. Work-up could be initiated as an outpatient. 7) Severe protein calorie malnutrition. The RD noted that he had nutrition intake of less than 50% recommended and an 8.3% weight loss in2 mos. - ALLERGIES Allergies/Adverse Reactions: Allergies Allergy/AdvReac Type Severity Reaction Status Date / Time No Known Drug Allergies Allergy Verified 08/23/19 12:18 - MEDICATIONS Home Medications: Ambulatory Orders Medication Instructions Recorded Confirmed Aspirin [Aspirin EC] 81 mg PO DAILY 01/06/17 08/23/19 Rizatriptan Benzoate [Rizatriptan] 5 mg PO PRN PRN 01/06/17 08/23/19 Melatonin 3 mg PO QPM 01/05/18 08/23/19 Multivit-Min/FA/Lycopen/Lutein 1 tab PO DAILY 01/05/18 08/23/19 [Centrum Silver Men Tablet] Atorvastatin Calcium 20 mg PO QPM 08/23/19 08/23/19 Carbidopa/Levodopa 2 tab PO QID 08/23/19 08/23/19 [Carbidopa-Levodopa 25-100 Tab] QUEtiapine [SEROquel] 12.5 mg ORAL DAILY PM 08/23/19 08/23/19 Propranolol [Inderal] 10 mg PO BID #60 tablet 08/24/19 - PHYSICAL EXAM AT DISCHARGE General Appearance: positive: No acute distress, Alert Eyes Bilateral: positive: Normal inspection, EOMI ENT: positive: ENT inspection nml, No signs of dehydration Neck: positive: Nml inspection Respiratory: positive: No respiratory distress Cardiovascular: positive: Regular rate & rhythm, No murmur Abdomen: positive: Nml bowel sounds, No distention Skin: positive: Color nml Extremities: positive: No pedal edema Neurologic/Psychiatric: positive: Oriented x3, Other (No resting tremor or intentional tremor. His gait was not assessed.) - LABS Result Diagrams: 08/23/19 12:51 08/23/19 12:51 - DIAGNOSTIC IMAGING Diagnostic Imaging Results: Final report reviewed - FOLLOW UP Follow Up: See PCP as per routine.
[2019-08-24 12:36] VITALS: BP 122/67
== END 2019-08-24 12:58 | disposition home or self-care (01) ==
LOC: EDUNIT# → ED 12:12 → MS2 13:36
PROVIDERS: ADMIT Internal Medicine; ATTEND Internal Medicine
DX: R55 Syncope and collapse (principal); R00.1 Bradycardia, unspecified; T44.7X5A Adverse effect of beta-adrenoreceptor antagonists, initial encounter; Y92.009 Unspecified place in unspecified non-institutional (private) residence as the place of occurrence of the external cause; G43.909 Migraine, unspecified, not intractable, without status migrainosus; G20 Parkinson's disease; F02.80 Dementia in other diseases classified elsewhere, unspecified severity, without behavioral disturbance, psychotic disturbance, mood disturbance, and anxiety; D64.9 Anemia, unspecified; E43 Unspecified severe protein-calorie malnutrition; C61 Malignant neoplasm of prostate; Z79.818 Long term (current) use of other agents affecting estrogen receptors and estrogen levels; Z87.891 Personal history of nicotine dependence; Z66 Do not resuscitate
CPT/HCPCS: 36415; 80053; 83690; 83735; 84443; 84484; 85025; 93005; 99281; 99285; A9270; G0378